=== PATIENT | male | born 1955 | race Caucasian/White ===

== ENCOUNTER 2017-06-02 12:23 | Emergency (ER) | payer OTHER ==
[~2017-06-02] VITALS: Ht 182.9 cm; Wt 66.0 kg
[~2017-06-02 12:23] MED LIST: ASPI-529 PO; ATOR20TA66 PO; BUDE10.22 INH; CHOL100010 PO; CLA10T PO; DIGO125T PO; EFF37.5XRC PO; FLO0.4C PO; FURO80TA87 PO; LISI-600 PO; METH-360 PO; METO100T7 PO; NICO-631 TD; NITR0.4T48 SL; OLAN2.5T3 PO; OXYC-658 PO; OXYC20TA55 PO; OXYC40TA48 PO; PANT40TA39 PO; RIVA10TA PO; ROPI2TAB29 PO; SPIR25TA PO; albuterol INH
[2017-06-02 13:24] VITALS: BP 118/85
[2017-06-02] MEDS ORDERED: ACET-3067 PO (14:21)
[2017-06-02] MEDS ORDERED: CEPH500C5 PO (14:40)
== END 2017-06-02 15:09 | disposition home or self-care (01) ==
LOC: ER 12:24
DX: S92.901A Unspecified fracture of right foot, initial encounter for closed fracture (principal); I25.10 Atherosclerotic heart disease of native coronary artery without angina pectoris; I11.0 Hypertensive heart disease with heart failure; I50.9 Heart failure, unspecified; E78.00 Pure hypercholesterolemia, unspecified; I25.2 Old myocardial infarction; J44.9 Chronic obstructive pulmonary disease, unspecified; K21.9 Gastro-esophageal reflux disease without esophagitis; G89.29 Other chronic pain; Z79.899 Other long term (current) drug therapy; W22.8XXA Striking against or struck by other objects, initial encounter; Y93.89 Activity, other specified; Y92.89 Other specified places as the place of occurrence of the external cause; Y99.8 Other external cause status
CPT/HCPCS: 29515; 73630; 99284; A6449

== ENCOUNTER 2018-02-19 21:51 | Inpatient (IN) | payer OTHER ==
[~2018-02-19] VITALS: Ht 188 cm; Wt 70.4 kg
[~2018-02-19 21:51] MED LIST changes: +CEPH500C5 PO
[2018-02-19] MEDS ORDERED: ipratropium/albuterol 3ml nebule NEB ONE (21:55)
[2018-02-19] MEDS ORDERED: albuterol 2.5 MG/3 ML nebule NEB ONE (21:55)
[2018-02-19] MEDS ORDERED: levoFLOXACIN-Levaquin 750MG/D5 150 ML IV ONE (21:55)
[2018-02-19] MEDS ORDERED: methylPREDNISolone sod succ 125mg/2ml vial IV ONE (21:55)
[2018-02-19] MEDS ORDERED: ipratropium 0.5 MG/2.5ML nebule ONE (21:57)
[2018-02-19] MEDS ORDERED: albuterol 2.5 MG/3 ML nebule ONE (21:57)
[2018-02-19] MEDS ORDERED: CYCL-394 PO (22:16)
[2018-02-19 22:21] LABS: ABG BASE EXCESS 1.2 mmol/L (-2.0-3.0); ABG HCO3 27.2 mmol/L (22.0-26.0); ABG OXYGEN SATURATION 95.6 % (95-98); ABG PCO2 (T) 47.2 mmHg (35.0-48.0); ABG PH (T) 7.375 (7.350-7.450); ABG PO2 (T) 72.3 mmHg (83-108); FCOHb 1.5 % (0.5-1.5); FLOW 15 L/min; FMetHb 0.1 % (0.3-1.12); FO2Hb 94.1 % (94-100); PATIENT TEMPERATURE 36.2; RESPIRATORY RATE (OBSERVED) 20 b/min; TOTAL HEMOGLOBIN 13.1 G/dl (14.0-18.0)
[2018-02-19] MEDS ORDERED: CefTRIAXone/D5W-Rocephin 1gm 50 ML IV ONE (22:25)
[2018-02-19] MEDS ORDERED: normal saline 1000ML IV soln IVB ONE (22:25)
[2018-02-19 22:28] LABS: BASOPHILS # (AUTO) 0.1 X10'3 (0-0.2); BASOPHILS % (AUTO) 0.3 % (0-1); EOSINOPHILS # (AUTO) 0.1 X10'3 (0-0.9); EOSINOPHILS % (AUTO) 0.8 % (0-6); HEMATOCRIT 41.8 % (42.0-52.0); HEMOGLOBIN 13.8 g/dl (14.0-17.9); LYMPHOCYTES # (AUTO) 1.1 X10'3 (1.1-4.8); LYMPHOCYTES % (AUTO) 6.3 % (21-51); MEAN CORPUSCULAR HEMOGLOBIN 31.9 PG (27.0-31.0); MEAN CORPUSCULAR VOLUME 96.9 FL (78-98); MEAN PLATELET VOLUME 8.2 FL (7.4-10.4); MONOCYTES # (AUTO) 1.2 X10'3 (0-0.9); MONOCYTES % (AUTO) 6.9 % (2-12); NEUTROPHILS % (AUTO) 85.7 % (42-75); PLATELET COUNT 275 X10'3 (140-440); RED BLOOD COUNT 4.32 X10'6 (4.70-6.10); RED CELL DISTRIBUTION WIDTH 13.8 % (11.5-14.5); WHITE BLOOD COUNT 17.5 X10'3 (4.5-11.0)
[2018-02-19 22:36] LABS: ALANINE AMINOTRANSFERASE 21 U/L (12-78); ALBUMIN 2.4 G/DL (3.4-5.0); ALBUMIN/GLOBULIN RATIO 0.5 (1.1-1.5); ALKALINE PHOSPHATASE 102 IU/L (46-116); ANION GAP 7 (8-16); ASPARTATE AMINO TRANSFERASE 28 U/L (10-37); BILIRUBIN,TOTAL 0.7 MG/DL (0.1-1.0); BLOOD UREA NITROGEN 17 MG/DL (7-18); CALCIUM 8.6 MG/DL (8.5-10.1); CHLORIDE 98 MMOL/L (99-107); CREATININE 1.31 MG/DL (0.60-1.10); GLUCOSE 96 MG/DL (70-104); POTASSIUM 4.6 MMOL/L (3.5-5.1); SODIUM 134 MMOL/L (135-145); TOTAL CARBON DIOXIDE 28.8 MMOL/L (24-32); TOTAL PROTEIN 7.6 G/DL (6.4-8.2); eGFR 55 ML/MIN
[2018-02-19 22:41] LABS: INR 1.5 INR; PARTIAL THROMBOPLASTIN TIME 61 SECONDS (22-32); PROTHROMBIN TIME 15.3 SECONDS (9.0-12.0)
[2018-02-19 22:43] LABS: ETHANOL < 0.010 GM/DL (0.0-0.010); MAGNESIUM 1.1 MG/DL (1.5-2.4)
[2018-02-19 22:44] LABS: ACETAMINOPHEN < 2.0 UG/ML (10-30)
--- NOTE | 2018-02-19 22:48 | NUR ---
[place] [phone]
[2018-02-19] MEDS ORDERED: normal saline 1000ML IV soln IV ONE (22:50)
[2018-02-19] MEDS: normal saline 1000ml 1,000 ML IV SCH (23:46)
[2018-02-19 23:49] LABS: PLATELET ESTIMATE NORMAL; TOTAL CELLS COUNTED 100
[2018-02-19] MEDS ORDERED: potassium Cl 40MEQ/NS 500ml 500 ML IV PRN ×2 (23:50)
[2018-02-19] MEDS ORDERED: acetaminophen 325mg tablet PO PRN (23:50)
[2018-02-19] MEDS ORDERED: potassium Cl 20 mEq SR tablet PO PRN ×2 (23:50)
[2018-02-19] MEDS ORDERED: acetaminophen 650mg rectal suppository RC PRN (23:50)
[2018-02-19] MEDS ORDERED: ondansetron/PF 4mg/2ml inj IV PRN (23:50)
[2018-02-19 23:58] LABS: URINE AMPHETAMINE SCREEN NEGATIVE (Neg); URINE BARBITUATE SCREEN NEGATIVE (Neg); URINE BENZODIAZEPINES SCREEN NEGATIVE (Neg); URINE CANNABINOID SCREEN POSITIVE (Neg); URINE COCAINE SCREEN NEGATIVE (Neg); URINE METHADONE SCREEN NEGATIVE (Neg); URINE OPIATE SCREEN POSITIVE (Neg); URINE PHENCYCLIDINE SCREEN NEGATIVE (Neg)
--- NOTE | 2018-02-20 00:48 | NUR ---
ASSUMED PATIENT CARE FOR LUNCH BREAK, PT IN FOUR POINT RESTRAINTS, CSM X 4 INTACT, NO ORDERS NOTED FOR RESTRAINTS, [facility] CLINICAL REHABILITATION AIDE NOTIFIED, WILL NOTIFY PRIMARY RN UPON HIS RETURN FROM LUNCH.
--- NOTE | 2018-02-20 00:58 | NUR ---
PT RESTRAINTS REMOVED, PT ALERT, AND AGREES TO NOT POOL AT HIS IV LINES. UPON REMOVING RESTRAINTS PT CALM AND FOLLOWING COMMANDS.
[2018-02-20] MEDS: albuterol 2.5 MG/3 ML nebule NEB SCH ×4 (02:00→20:21)
[2018-02-20] MEDS ORDERED: ipratropium/albuterol 3ml nebule NEB SCH (03:00)
[2018-02-20 05:16] LABS: BASOPHILS % (AUTO) 0.1 % (0-1); EOSINOPHILS % (AUTO) 0.1 % (0-6); HEMATOCRIT 34.6 % (42.0-52.0); HEMOGLOBIN 11.7 g/dl (14.0-17.9); LYMPHOCYTES # (AUTO) 0.2 X10'3 (1.1-4.8); LYMPHOCYTES % (AUTO) 1.3 % (21-51); MEAN CORPUSCULAR HGB CONC 33.9 % (33.0-36.5); MEAN CORPUSCULAR VOLUME 97.2 FL (78-98); MEAN PLATELET VOLUME 8.1 FL (7.4-10.4); MONOCYTES # (AUTO) 0.3 X10'3 (0-0.9); MONOCYTES % (AUTO) 1.7 % (2-12); NEUTROPHILS # (AUTO) 14.7 X10'3 (1.8-7.7); NEUTROPHILS % (AUTO) 96.8 % (42-75); PLATELET COUNT 212 X10'3 (140-440); RED BLOOD COUNT 3.56 X10'6 (4.70-6.10); RED CELL DISTRIBUTION WIDTH 13.9 % (11.5-14.5); WHITE BLOOD COUNT 15.2 X10'3 (4.5-11.0)
[2018-02-20 05:18] LABS: ALANINE AMINOTRANSFERASE 18 U/L (12-78); ALBUMIN 1.9 G/DL (3.4-5.0); ALBUMIN/GLOBULIN RATIO 0.4 (1.1-1.5); ALKALINE PHOSPHATASE 84 IU/L (46-116); ANION GAP 7 (8-16); ASPARTATE AMINO TRANSFERASE 21 U/L (10-37); BILIRUBIN,TOTAL 0.4 MG/DL (0.1-1.0); BLOOD UREA NITROGEN 15 MG/DL (7-18); BUN/CREATININE RATIO 14.2 (5.4-32.0); CALCIUM 7.9 MG/DL (8.5-10.1); CHLORIDE 103 MMOL/L (99-107); CREATININE 1.06 MG/DL (0.60-1.10); GLUCOSE 105 MG/DL (70-104); POTASSIUM 4.8 MMOL/L (3.5-5.1); SODIUM 135 MMOL/L (135-145); TOTAL CARBON DIOXIDE 24.7 MMOL/L (24-32); TOTAL PROTEIN 6.3 G/DL (6.4-8.2); eGFR 70 ML/MIN
[2018-02-20 05:21] LABS: MAGNESIUM 1.1 MG/DL (1.5-2.4); PHOSPHORUS 3.3 MG/DL (2.3-4.5)
[2018-02-20 05:22] LABS: INR 1.7 INR; PARTIAL THROMBOPLASTIN TIME 63 SECONDS (22-32); PROTHROMBIN TIME 16.7 SECONDS (9.0-12.0)
[2018-02-20 05:55] LABS: CLARITY,URINE CLEAR (Clear); COLOR,URINE YELLOW (Yellow); GLUCOSE, URINE NEGATIVE (Neg); KETONES,URINE NEGATIVE (Neg); LEUKOCYTE ESTERASE ,URINE NEGATIVE (Neg); NITRITES, URINE NEGATIVE (Neg); OCCULT BLOOD,URINE MODERATE (Neg); PROTEIN,URINE TRACE mg/dl (Neg)
[2018-02-20 06:00] LABS: UA COLLECTION TYPE FOLEY CATH
[2018-02-20 06:16] LABS: BACTERIA,URINE FEW /HPF (Neg); WBC,URINE 0-4 /HPF (0-4)
[2018-02-20 06:17] LABS: MUCUS STRANDS NONE SEEN /LPF (Neg); SQUAMOUS EPITHELIAL CELL,UR NONE SEEN /LPF (FEW)
[2018-02-20 06:59] LABS: TOTAL CELLS COUNTED 100
[2018-02-20 07:00] LABS: PLATELET ESTIMATE NORMAL; TOXIC VACUOLATION 1+
[2018-02-20] MEDS: aspirin 81mg tab.chew PO SCH (07:42)
[2018-02-20] MEDS: CefTRIAXone 2gm/D5W 50ml 50 ML IV SCH (07:42)
[2018-02-20] MEDS: pantoprazole 40 MG vial IV SCH (07:43)
[2018-02-20] MEDS: atorvastatin 20mg tablet PO SCH (07:43)
[2018-02-20] MEDS: metoprolol succinate 25mg (24-HOUR) SR. Tablet PO SCH (07:43)
[2018-02-20] MEDS: methylPREDNISolone sod succ/PF 40mg inj. IV SCH ×2 (07:43→20:02)
[2018-02-20] MEDS ORDERED: non-formulary drug (Budesonide/Formoterol Fumarate (Symbicort 80-4.5 Mcg Inhaler) 2 PUFFS) INH SCH (08:00)
[2018-02-20] MEDS: K, MAG and/or Phos replacement - Verify level? MC SCH (08:00)
[2018-02-20] MEDS ORDERED: heparin, porcine 5000 units/ml vial SQ SCH (08:00)
[2018-02-20] MEDS: furosemide 40mg/4ml inj IV SCH (08:07)
[2018-02-20] MEDS: docusate sod 100mg capsule PO SCH ×2 (08:07→20:02)
[2018-02-20] MEDS: digoxin 125mcg (0.125mg) tablet PO SCH (08:56)
[2018-02-20] MEDS: budesonide 0.5mg/2ml UD nebule IH SCH ×2 (09:11→20:21)
--- NOTE | 2018-02-20 10:30 | NUR ---
Made Dr. Rodriguez aware of low Mag. 1.1, no new orders. He states he doesn't want it replaced unless patient goes into [facility].
--- NOTE | 2018-02-20 11:12 | NUR ---
RECEIVED REPORT FROM YAMILETH ER NURSE, WAITING FOR PATIENT TO ARRIVE TO ROOM.
--- NOTE | 2018-02-20 11:40 | NUR ---
PATIENT ARRIVED TO TELE ROOM 3017 A.
--- NOTE | 2018-02-20 13:39 | NUR ---
WAS MADE AWARE OF SVT RHYTHM ON TELE. NO NEW ORDERS AT THIS TIME.
[2018-02-20 15:00] VITALS: BP 120/76
[2018-02-20] MEDS ORDERED: iohexol 300mg/ml 100ml inj. ONE (16:58)
--- NOTE | 2018-02-20 17:11 | NUR ---
PATIENT LEFT FOR CT HEAD WITH CONTRAST.
[2018-02-20] MEDS: rivaroxaban 10mg tablet PO SCH (17:57)
[2018-02-20 18:00] VITALS: BP 114/67
--- NOTE | 2018-02-20 19:01 | NUR ---
Patient in room PCU 3017. I have received report from FATOUMATA Pal and had the opportunity to ask questions and assume patient care.
[2018-02-20] MEDS: normal saline 1000ml 1,000 ML IV SCH (19:06)
--- NOTE | 2018-02-20 19:28 | NUR ---
sputum sample sent to lab
--- NOTE | 2018-02-20 21:12 | NUR ---
Patient falls asleep when being spoken to. Unable to dart patient. Will continue to monitor for the ability.
[2018-02-20 22:00] VITALS: BP 114/64
[2018-02-21] MEDS: acetaminophen 325mg tablet PO PRN (01:48)
[2018-02-21 02:00] VITALS: BP 114/52
[2018-02-21] MEDS: oxyCODONE IR 5mg (immed. release) tablet PO PRN ×3 (02:15→20:51)
[2018-02-21] MEDS: normal saline 1000ml 1,000 ML IV SCH ×2 (02:26→08:42)
[2018-02-21] MEDS: albuterol 2.5 MG/3 ML nebule NEB SCH ×4 (03:10→20:20)
[2018-02-21 06:06] LABS: BASOPHILS % (AUTO) 0 % (0-1); EOSINOPHILS % (AUTO) 0 % (0-6); HEMATOCRIT 33.6 % (42.0-52.0); HEMOGLOBIN 11.2 g/dl (14.0-17.9); LYMPHOCYTES # (AUTO) 0.3 X10'3 (1.1-4.8); LYMPHOCYTES % (AUTO) 2.1 % (21-51); MEAN CORPUSCULAR HEMOGLOBIN 32.1 PG (27.0-31.0); MEAN CORPUSCULAR HGB CONC 33.4 % (33.0-36.5); MONOCYTES # (AUTO) 0.4 X10'3 (0-0.9); MONOCYTES % (AUTO) 3.1 % (2-12); NEUTROPHILS # (AUTO) 12.6 X10'3 (1.8-7.7); NEUTROPHILS % (AUTO) 94.8 % (42-75); PLATELET COUNT 283 X10'3 (140-440); WHITE BLOOD COUNT 13.3 X10'3 (4.5-11.0)
[2018-02-21 06:22] LABS: ALANINE AMINOTRANSFERASE 16 U/L (12-78); ALBUMIN 1.7 G/DL (3.4-5.0); ALBUMIN/GLOBULIN RATIO 0.4 (1.1-1.5); ALKALINE PHOSPHATASE 80 IU/L (46-116); ANION GAP 8 (8-16); ASPARTATE AMINO TRANSFERASE 22 U/L (10-37); BILIRUBIN,TOTAL 0.3 MG/DL (0.1-1.0); BLOOD UREA NITROGEN 25 MG/DL (7-18); BUN/CREATININE RATIO 22.7 (5.4-32.0); CALCIUM 8.4 MG/DL (8.5-10.1); CHLORIDE 106 MMOL/L (99-107); GLUCOSE 123 MG/DL (70-104); MAGNESIUM 1.3 MG/DL (1.5-2.4); PHOSPHORUS 3.1 MG/DL (2.3-4.5); SODIUM 141 MMOL/L (135-145); TOTAL CARBON DIOXIDE 26.7 MMOL/L (24-32); TOTAL PROTEIN 6.2 G/DL (6.4-8.2); eGFR 67 ML/MIN
--- NOTE | 2018-02-21 06:36 | NUR ---
Problems reprioritized. Patient report given, questions answered & plan of care reviewed with FATOUMATA Montanez.
--- NOTE | 2018-02-21 06:40 | NUR ---
Patient in room PCU 3017. I have received report from Verena HAM and had the opportunity to ask questions and assume patient care.
[2018-02-21 06:44] LABS: INR 1.7 INR; PARTIAL THROMBOPLASTIN TIME 61 SECONDS (22-32); PROTHROMBIN TIME 16.4 SECONDS (9.0-12.0)
[2018-02-21 07:11] VITALS: BP 126/74
[2018-02-21] MEDS: atorvastatin 20mg tablet PO SCH (07:23)
[2018-02-21] MEDS: aspirin 81mg tab.chew PO SCH (07:23)
[2018-02-21] MEDS: methylPREDNISolone sod succ/PF 40mg inj. IV SCH ×2 (07:24→19:48)
[2018-02-21] MEDS: metoprolol succinate 25mg (24-HOUR) SR. Tablet PO SCH (07:24)
[2018-02-21] MEDS: digoxin 125mcg (0.125mg) tablet PO SCH (07:24)
[2018-02-21] MEDS: K, MAG and/or Phos replacement - Verify level? MC SCH (07:24)
[2018-02-21] MEDS: docusate sod 100mg capsule PO SCH ×2 (07:24→19:47)
[2018-02-21] MEDS: furosemide 40mg/4ml inj IV SCH (07:24)
[2018-02-21] MEDS: pantoprazole 40 MG vial IV SCH (07:24)
[2018-02-21] MEDS: CefTRIAXone 2gm/D5W 50ml 50 ML IV SCH (07:24)
[2018-02-21] MEDS: budesonide 0.5mg/2ml UD nebule IH SCH ×2 (07:42→20:20)
[2018-02-21] MEDS: azithromycin/NS 500mg/250ml 250 ML IV SCH (08:42)
--- NOTE | 2018-02-21 12:31 | NUR ---
Nutrition consult: Pt with hx DM. Last A1c was 6.2 taken 08/23/14. New A1c pending. Will continue to follow and monitor need for DM ed. Addendum: 02/21/18 at [address] Amended: Links added.
[2018-02-21 12:33] VITALS: BP 115/60
[2018-02-21 12:53] LABS: HEMOGLOBIN A1C 5.7 % (4.5-6.2)
--- NOTE | 2018-02-21 14:45 | NUR ---
Dr. Rodriguez informed of positive MRSA nasal swab. Also informed MD of Mg 1.3, MD ordered slow mag BID, one dose now. Informed MD that pt had 5 and 7beat run of VTach this AM. aware. also aware of A1C of 5.7, D/C'd accuchecks.
[2018-02-21] MEDS ORDERED: magnesium Cl slow-release 64mg tablet PO ONE (14:50)
[2018-02-21] MEDS: vancomycin/NS 1 GM ADD-VANTAGE 250 ML IV SCH ×2 (15:11→19:48)
[2018-02-21 16:04] VITALS: BP 128/60
--- NOTE | 2018-02-21 16:05 | NUR ---
F/u: Patient's A1c is 5.7. DM education not warranted at this time. Will continue to follow. Nutrition consult: Pt with hx DM. Last A1c was 6.2 taken 08/23/14. New A1c pending. Will continue to follow and monitor need for DM ed. Addendum: 02/21/18 at [address] Amended: Links added.
[2018-02-21] MEDS: rivaroxaban 10mg tablet PO SCH (16:38)
[2018-02-21 18:00] VITALS: BP 130/82
--- NOTE | 2018-02-21 18:38 | NUR ---
Patient in room PCU 3017. I have received report from FATOUMATA Montanez and had the opportunity to ask questions and assume patient care.
--- NOTE | 2018-02-21 18:43 | NUR ---
Problems reprioritized. Patient report given, questions answered & plan of care reviewed with Melony HAM.
[2018-02-21] MEDS: lactobacillus rhamnosus 10,000 MMU CELLS/CAPSULE PO SCH (19:47)
[2018-02-21] MEDS: magnesium Cl slow-release 64mg tablet PO SCH (19:48)
[2018-02-21 22:00] VITALS: BP 124/65
[2018-02-21] MEDS ORDERED: lactulose 20gm/30ml cup PO PRN (23:50)
[2018-02-22] MEDS: normal saline 1000ml 1,000 ML IV SCH ×2 (01:47→17:25)
[2018-02-22 02:00] VITALS: BP 125/70
[2018-02-22] MEDS ORDERED: ipratropium/albuterol 3ml nebule ONE (02:02)
[2018-02-22] MEDS: albuterol 2.5 MG/3 ML nebule NEB SCH ×4 (02:11→20:17)
[2018-02-22] MEDS: oxyCODONE IR 5mg (immed. release) tablet PO PRN ×4 (03:50→22:42)
[2018-02-22] MEDS: acetaminophen 325mg tablet PO PRN (04:01)
--- NOTE | 2018-02-22 04:30 | NUR ---
Patient was very upset and got out of bed, raising his voice saying he wanted to leave the hospital because he is only getting half of his oxycodone IR dose. Patient was spoken to and calmed down and states he will wait to speak with MD in the morning to discuss.
--- NOTE | 2018-02-22 06:27 | NUR ---
Problems reprioritized. Patient report given, questions answered & plan of care reviewed with FATOUMATA Vale.
[2018-02-22 06:30] VITALS: BP 143/80
--- NOTE | 2018-02-22 06:35 | NUR ---
Problems reprioritized. Patient report given, questions answered & plan of care reviewed with Melony HAM. Addendum: 02/22/18 at 0637 by Kavin Pedraza RN Patient in room [place] [address]. I have received report from Melony HAM and had the opportunity to ask questions and assume patient care.
[2018-02-22] MEDS: lactobacillus rhamnosus 10,000 MMU CELLS/CAPSULE PO SCH ×2 (07:26→20:39)
[2018-02-22] MEDS: methylPREDNISolone sod succ/PF 40mg inj. IV SCH ×2 (07:26→20:38)
[2018-02-22] MEDS: atorvastatin 20mg tablet PO SCH (07:27)
[2018-02-22] MEDS: aspirin 81mg tab.chew PO SCH (07:27)
[2018-02-22] MEDS: magnesium Cl slow-release 64mg tablet PO SCH ×2 (07:27→20:40)
[2018-02-22] MEDS: CefTRIAXone 2gm/D5W 50ml 50 ML IV SCH (07:27)
[2018-02-22] MEDS: pantoprazole 40mg Tablet.DR PO SCH (07:27)
[2018-02-22] MEDS: docusate sod 100mg capsule PO SCH ×2 (07:40→20:39)
[2018-02-22] MEDS: furosemide 40mg/4ml inj IV SCH (07:44)
[2018-02-22] MEDS: metoprolol succinate 25mg (24-HOUR) SR. Tablet PO SCH (07:44)
[2018-02-22] MEDS: digoxin 125mcg (0.125mg) tablet PO SCH (07:44)
[2018-02-22 07:46] LABS: BASOPHILS % (AUTO) 0 % (0-1); EOSINOPHILS % (AUTO) 0 % (0-6); HEMATOCRIT 34.5 % (42.0-52.0); HEMOGLOBIN 11.3 g/dl (14.0-17.9); LYMPHOCYTES # (AUTO) 0.4 X10'3 (1.1-4.8); LYMPHOCYTES % (AUTO) 4.1 % (21-51); MEAN CORPUSCULAR HEMOGLOBIN 31.1 PG (27.0-31.0); MEAN CORPUSCULAR HGB CONC 32.8 % (33.0-36.5); MEAN PLATELET VOLUME 7.8 FL (7.4-10.4); MONOCYTES # (AUTO) 0.4 X10'3 (0-0.9); MONOCYTES % (AUTO) 3.9 % (2-12); NEUTROPHILS # (AUTO) 9.5 X10'3 (1.8-7.7); PLATELET COUNT 336 X10'3 (140-440); RED BLOOD COUNT 3.63 X10'6 (4.70-6.10); RED CELL DISTRIBUTION WIDTH 14.7 % (11.5-14.5); WHITE BLOOD COUNT 10.3 X10'3 (4.5-11.0)
[2018-02-22 07:47] LABS: INR 1.3 INR; PARTIAL THROMBOPLASTIN TIME 44 SECONDS (22-32); PROTHROMBIN TIME 12.6 SECONDS (9.0-12.0)
[2018-02-22 07:51] LABS: ALANINE AMINOTRANSFERASE 20 U/L (12-78); ALBUMIN 1.9 G/DL (3.4-5.0); ALBUMIN/GLOBULIN RATIO 0.4 (1.1-1.5); ALKALINE PHOSPHATASE 78 IU/L (46-116); ANION GAP 8 (8-16); ASPARTATE AMINO TRANSFERASE 25 U/L (10-37); BILIRUBIN,TOTAL 0.3 MG/DL (0.1-1.0); BLOOD UREA NITROGEN 26 MG/DL (7-18); CALCIUM 8.5 MG/DL (8.5-10.1); CHLORIDE 106 MMOL/L (99-107); GLUCOSE 106 MG/DL (70-104); MAGNESIUM 1.6 MG/DL (1.5-2.4); PHOSPHORUS 2.6 MG/DL (2.3-4.5); POTASSIUM 3.8 MMOL/L (3.5-5.1); SODIUM 142 MMOL/L (135-145); TOTAL PROTEIN 6.3 G/DL (6.4-8.2); eGFR 75 ML/MIN
[2018-02-22] MEDS: K, MAG and/or Phos replacement - Verify level? MC SCH (08:00)
[2018-02-22] MEDS: azithromycin/NS 500mg/250ml 250 ML IV SCH (08:34)
[2018-02-22] MEDS: budesonide 0.5mg/2ml UD nebule IH SCH ×2 (08:49→20:17)
--- NOTE | 2018-02-22 08:50 | NUR ---
LIZZETH Luna reported that patient was short of breath. Patient's O2 sat was 75% at 2 lpm/nc. Patient's oximeter probe was on a gloved finger. Patient's O2 sat rechecked on the finger without glove on, O2 sat went up to 95%. Patient stated that he went to the bathroom by himself. Patient was advised to use call light system. Bed alarm turned on for safety. Instructed LIZZETH Luna to place a bedside commode at bedside and encouraged patient to call for assistance - patient verbalized understanding of safety instructions made
[2018-02-22] MEDS: vancomycin/NS 1 GM ADD-VANTAGE 250 ML IV SCH ×2 (09:41→20:39)
--- NOTE | 2018-02-22 10:37 | NUR ---
Patient had 13 runs of Vtach as reported by Kopjra. Printed strip showed to CLAYTON Ladd covering for Dr. Rodriguez. She gave me an order to interrogate pacemaker. Addendum: 02/22/18 at 1053 by Kavin Pedraza RN Called patient's to ask about pacemaker information -she said it is Code71. [employer] notified
[2018-02-22] MEDS ORDERED: potassium Cl 20 mEq SR tablet PO STA (10:49)
--- NOTE | 2018-02-22 10:53 | NUR ---
Dr. Rodriguez came by at the nurses station - showed to him the recorded strip of runs of Vtach. He ordered to replace K and to keep K level at least 4.5. CLAYTON Liang gave me the specific order for K replacement
[2018-02-22 11:00] VITALS: BP 143/81
--- NOTE | 2018-02-22 11:43 | NUR ---
Spoke to Cal tinsley from [employer]. He acknowledged request for pacemaker interrogation for this patient. Cal said to me that he is currently in the [place] [facility] and won't be able to see the patient until tomorrow around 10 am
--- NOTE | 2018-02-22 14:49 | NUR ---
CLAYTON Ladd spoke to the patient, she said that patient denies suicidal thoughts and that he is only frustrated
[2018-02-22 15:00] VITALS: BP 144/93
[2018-02-22] MEDS ORDERED: potassium chloride 10mEq CAPSULE.SA PO SCH (15:00)
[2018-02-22] MEDS ORDERED: potassium Cl 20 mEq SR tablet PO ONE (15:00)
[2018-02-22] MEDS: oxyCODONE SR 10mg (sust. release) tab PO SCH ×2 (17:21→20:40)
[2018-02-22] MEDS: rivaroxaban 10mg tablet PO SCH (17:22)
[2018-02-22 18:00] VITALS: BP 135/81
--- NOTE | 2018-02-22 18:05 | NUR ---
Patient in room PCU 3017. I have received report from Kavin HAM and had the opportunity to ask questions and assume patient care.
--- NOTE | 2018-02-22 18:39 | NUR ---
Problems reprioritized. Patient report given, questions answered & plan of care reviewed with Martha HAM.
[2018-02-22] MEDS ORDERED: potassium chloride 10mEq ER tablet PO ONE (18:40)
[2018-02-22] MEDS: OLANZapine 2.5MG tablet PO SCH (20:40)
[2018-02-22 22:00] VITALS: BP 139/87
[2018-02-23 02:00] VITALS: BP 144/75
[2018-02-23] MEDS: albuterol 2.5 MG/3 ML nebule NEB SCH ×4 (02:07→20:11)
[2018-02-23] MEDS ORDERED: oxyCODONE SR 10mg (sust. release) tab PO SCH (02:55)
[2018-02-23] MEDS: oxyCODONE SR 10mg (sust. release) tab PO SCH ×4 (03:15→19:36)
--- NOTE | 2018-02-23 06:50 | NUR ---
Problems reprioritized. Patient report given, questions answered & plan of care reviewed with Rea HAM.
[2018-02-23 07:00] VITALS: BP 133/86
[2018-02-23] MEDS ORDERED: VANCOMYCIN LEVEL IV ONE (07:30)
[2018-02-23 07:47] LABS: BASOPHILS % (AUTO) 0.5 % (0-1); EOSINOPHILS % (AUTO) 0.1 % (0-6); HEMATOCRIT 37.2 % (42.0-52.0); HEMOGLOBIN 12.1 g/dl (14.0-17.9); LYMPHOCYTES # (AUTO) 0.7 X10'3 (1.1-4.8); LYMPHOCYTES % (AUTO) 6.4 % (21-51); MEAN CORPUSCULAR HGB CONC 32.5 % (33.0-36.5); MEAN CORPUSCULAR VOLUME 95.4 FL (78-98); MEAN PLATELET VOLUME 7.4 FL (7.4-10.4); MONOCYTES # (AUTO) 0.5 X10'3 (0-0.9); MONOCYTES % (AUTO) 4.8 % (2-12); NEUTROPHILS % (AUTO) 88.2 % (42-75); PLATELET COUNT 376 X10'3 (140-440); RED CELL DISTRIBUTION WIDTH 15.3 % (11.5-14.5); WHITE BLOOD COUNT 10.3 X10'3 (4.5-11.0)
[2018-02-23] MEDS: budesonide 0.5mg/2ml UD nebule IH SCH ×2 (07:48→20:11)
[2018-02-23] MEDS: K, MAG and/or Phos replacement - Verify level? MC SCH (08:00)
[2018-02-23 08:04] LABS: INR 1.2 INR; PARTIAL THROMBOPLASTIN TIME 35 SECONDS (22-32)
[2018-02-23 08:08] LABS: ALANINE AMINOTRANSFERASE 22 U/L (12-78); ALBUMIN 2.1 G/DL (3.4-5.0); ALBUMIN/GLOBULIN RATIO 0.5 (1.1-1.5); ALKALINE PHOSPHATASE 74 IU/L (46-116); ANION GAP 7 (8-16); ASPARTATE AMINO TRANSFERASE 23 U/L (10-37); BILIRUBIN,TOTAL 0.3 MG/DL (0.1-1.0); BLOOD UREA NITROGEN 25 MG/DL (7-18); BUN/CREATININE RATIO 25.8 (5.4-32.0); CALCIUM 8.9 MG/DL (8.5-10.1); CHLORIDE 104 MMOL/L (99-107); CREATININE 0.97 MG/DL (0.60-1.10); GLUCOSE 98 MG/DL (70-104); MAGNESIUM 1.6 MG/DL (1.5-2.4); PHOSPHORUS 2.8 MG/DL (2.3-4.5); POTASSIUM 4.6 MMOL/L (3.5-5.1); SODIUM 140 MMOL/L (135-145); TOTAL CARBON DIOXIDE 29.4 MMOL/L (24-32); TOTAL PROTEIN 6.5 G/DL (6.4-8.2); VANCOMYCIN,TROUGH 19.9 UG/ML (6.0-14.0); eGFR 78 ML/MIN
[2018-02-23] MEDS: CefTRIAXone 2gm/D5W 50ml 50 ML IV SCH (08:24)
[2018-02-23] MEDS: furosemide 40mg/4ml inj IV SCH (08:24)
[2018-02-23] MEDS: methylPREDNISolone sod succ/PF 40mg inj. IV SCH ×2 (08:25→19:36)
[2018-02-23] MEDS: lactobacillus rhamnosus 10,000 MMU CELLS/CAPSULE PO SCH ×2 (08:29→19:36)
[2018-02-23] MEDS: docusate sod 100mg capsule PO SCH ×2 (08:29→19:41)
[2018-02-23] MEDS: azithromycin 250mg tablet PO SCH (08:29)
[2018-02-23] MEDS: magnesium Cl slow-release 64mg tablet PO SCH ×2 (08:29→19:36)
[2018-02-23] MEDS: pantoprazole 40mg Tablet.DR PO SCH (08:30)
[2018-02-23] MEDS: metoprolol succinate 25mg (24-HOUR) SR. Tablet PO SCH (08:30)
[2018-02-23] MEDS: atorvastatin 20mg tablet PO SCH (08:30)
[2018-02-23] MEDS: potassium Cl 20 mEq SR tablet PO SCH (08:30)
[2018-02-23] MEDS: vancomycin/NS 1 GM ADD-VANTAGE 250 ML IV SCH ×2 (08:31→19:37)
[2018-02-23] MEDS: normal saline 1000ml 1,000 ML IV SCH ×2 (08:31→21:06)
[2018-02-23] MEDS: digoxin 125mcg (0.125mg) tablet PO SCH (08:31)
[2018-02-23] MEDS: aspirin 81mg tab.chew PO SCH (08:31)
[2018-02-23] MEDS: oxyCODONE IR 5mg (immed. release) tablet PO PRN ×3 (09:59→22:01)
[2018-02-23 12:00] VITALS: BP 140/78
--- NOTE | 2018-02-23 15:08 | NUR ---
Initial: Pt admit w/ bacterial PNA, hx smoker and emphysema. PO 50% avg carb controlled meals increased to 75% latest meal. LBM 02/22. Will monitor for additional protein needs. Rec: 1. continue carb controlled diet 2. monitor for ONS needs 3. wt per rx Addendum: 02/23/18 at [address] Amended: Links added.
[2018-02-23] MEDS: rivaroxaban 10mg tablet PO SCH (17:39)
--- NOTE | 2018-02-23 18:20 | NUR ---
Patient in room PCU 3017. I have received report from Rea HAM and had the opportunity to ask questions and assume patient care. at bedside, pt resting comfortably, in no distress at this time. will continue to monitor.
[2018-02-23 19:00] VITALS: BP 128/82
[2018-02-23] MEDS: OLANZapine 2.5MG tablet PO SCH (20:56)
[2018-02-23 23:00] VITALS: BP 137/81
[2018-02-24] MEDS: albuterol 2.5 MG/3 ML nebule NEB SCH ×3 (02:04→14:20)
[2018-02-24] MEDS: oxyCODONE SR 10mg (sust. release) tab PO SCH ×3 (02:10→14:07)
[2018-02-24 03:06] VITALS: BP 129/70
[2018-02-24] MEDS: oxyCODONE IR 5mg (immed. release) tablet PO PRN ×3 (05:35→16:04)
[2018-02-24 06:00] VITALS: BP 123/74
[2018-02-24 06:22] LABS: BASOPHILS # (AUTO) 0.1 X10'3 (0-0.2); BASOPHILS % (AUTO) 0.8 % (0-1); EOSINOPHILS # (AUTO) 0.1 X10'3 (0-0.9); EOSINOPHILS % (AUTO) 1.3 % (0-6); HEMATOCRIT 40.5 % (42.0-52.0); HEMOGLOBIN 13.1 g/dl (14.0-17.9); LYMPHOCYTES # (AUTO) 0.6 X10'3 (1.1-4.8); LYMPHOCYTES % (AUTO) 5.8 % (21-51); MEAN CORPUSCULAR HGB CONC 32.4 % (33.0-36.5); MEAN CORPUSCULAR VOLUME 95.8 FL (78-98); MEAN PLATELET VOLUME 7.3 FL (7.4-10.4); MONOCYTES # (AUTO) 0.5 X10'3 (0-0.9); MONOCYTES % (AUTO) 4.7 % (2-12); NEUTROPHILS # (AUTO) 9.1 X10'3 (1.8-7.7); NEUTROPHILS % (AUTO) 87.4 % (42-75); PLATELET COUNT 459 X10'3 (140-440); RED BLOOD COUNT 4.23 X10'6 (4.70-6.10); WHITE BLOOD COUNT 10.4 X10'3 (4.5-11.0)
--- NOTE | 2018-02-24 06:30 | NUR ---
Patient in room PCU 3017. I have received report from Pallavi HAM and had the opportunity to ask questions and assume patient care. Patient resting comfortably in bed. In no acute distress. Will continue to monitor.
--- NOTE | 2018-02-24 06:32 | NUR ---
Problems reprioritized. Patient report given, questions answered & plan of care reviewed with Deb HAM.
[2018-02-24 06:34] LABS: ALANINE AMINOTRANSFERASE 25 U/L (12-78); ALBUMIN 2.3 G/DL (3.4-5.0); ALBUMIN/GLOBULIN RATIO 0.5 (1.1-1.5); ALKALINE PHOSPHATASE 81 IU/L (46-116); ANION GAP 4 (8-16); ASPARTATE AMINO TRANSFERASE 22 U/L (10-37); BILIRUBIN,TOTAL 0.4 MG/DL (0.1-1.0); BLOOD UREA NITROGEN 24 MG/DL (7-18); CALCIUM 9.1 MG/DL (8.5-10.1); CHLORIDE 103 MMOL/L (99-107); GLUCOSE 108 MG/DL (70-104); INR 1.2 INR; MAGNESIUM 1.7 MG/DL (1.5-2.4); PARTIAL THROMBOPLASTIN TIME 35 SECONDS (22-32); PHOSPHORUS 3.6 MG/DL (2.3-4.5); POTASSIUM 4.9 MMOL/L (3.5-5.1); PROTHROMBIN TIME 12.1 SECONDS (9.0-12.0); SODIUM 141 MMOL/L (135-145); TOTAL CARBON DIOXIDE 33.6 MMOL/L (24-32); TOTAL PROTEIN 6.9 G/DL (6.4-8.2); eGFR 75 ML/MIN
[2018-02-24] MEDS: K, MAG and/or Phos replacement - Verify level? MC SCH (08:00)
[2018-02-24] MEDS: docusate sod 100mg capsule PO SCH (08:00)
[2018-02-24] MEDS: budesonide 0.5mg/2ml UD nebule IH SCH (08:12)
[2018-02-24] MEDS: atorvastatin 20mg tablet PO SCH (08:37)
[2018-02-24] MEDS: digoxin 125mcg (0.125mg) tablet PO SCH (08:40)
[2018-02-24] MEDS: potassium Cl 20 mEq SR tablet PO SCH (08:40)
[2018-02-24] MEDS: magnesium Cl slow-release 64mg tablet PO SCH (08:55)
[2018-02-24] MEDS: pantoprazole 40mg Tablet.DR PO SCH (08:55)
[2018-02-24] MEDS: azithromycin 250mg tablet PO SCH (08:57)
[2018-02-24] MEDS: CefTRIAXone 2gm/D5W 50ml 50 ML IV SCH (08:57)
[2018-02-24] MEDS: metoprolol succinate 25mg (24-HOUR) SR. Tablet PO SCH (08:57)
[2018-02-24] MEDS: lactobacillus rhamnosus 10,000 MMU CELLS/CAPSULE PO SCH (08:57)
[2018-02-24] MEDS: aspirin 81mg tab.chew PO SCH (08:57)
[2018-02-24] MEDS: furosemide 40mg/4ml inj IV SCH (08:57)
[2018-02-24] MEDS: methylPREDNISolone sod succ/PF 40mg inj. IV SCH (08:57)
[2018-02-24 11:00] VITALS: BP 132/93
[2018-02-24] MEDS: vancomycin/NS 1 GM ADD-VANTAGE 250 ML IV SCH (11:13)
[2018-02-24] MEDS: normal saline 1000ml 1,000 ML IV SCH (14:08)
[2018-02-24 15:00] VITALS: BP 155/76
[2018-02-24] MEDS ORDERED: PRED10TA PO (15:59)
[2018-02-24] MEDS ORDERED: LEVO500T2 PO (15:59)
--- NOTE | 2018-02-24 17:15 | NUR ---
Patient stable to discharge per MD orders. All discharge instructions reviewed with patient and all questions answered. [facility]. Patient provided education on new prescriptions. PIV discontinued - cannula intact. Telemetry monitoring discontinued. Patient transported in wheelchair by PCT to private vehicle, accompanied by family member.
== END 2018-02-24 17:15 | disposition home or self-care (01) | DRG 871 ==
LOC: ER 21:52 → ED HOLD 23:46 → EDBEDREQSVC 02-20 10:50 → EDBEDREQ 02-20 10:50 → EDBEDREQTM 02-20 10:50 → PCU 3S 02-20 12:04
PROVIDERS: ADMIT Internal Medicine Critical Care Medicine; ATTEND Internal Medicine Critical Care Medicine
DX: A41.9 Sepsis, unspecified organism (principal); J96.01 Acute respiratory failure with hypoxia; J85.1 Abscess of lung with pneumonia; J44.0 Chronic obstructive pulmonary disease with (acute) lower respiratory infection; I42.9 Cardiomyopathy, unspecified; I50.22 Chronic systolic (congestive) heart failure; I47.2 Ventricular tachycardia; E78.00 Pure hypercholesterolemia, unspecified; F15.90 Other stimulant use, unspecified, uncomplicated; F32.9 Major depressive disorder, single episode, unspecified; F41.9 Anxiety disorder, unspecified; B19.20 Unspecified viral hepatitis C without hepatic coma; M54.9 Dorsalgia, unspecified; G89.4 Chronic pain syndrome; I11.0 Hypertensive heart disease with heart failure; I25.10 Atherosclerotic heart disease of native coronary artery without angina pectoris; B95.62 Methicillin resistant Staphylococcus aureus infection as the cause of diseases classified elsewhere; K21.9 Gastro-esophageal reflux disease without esophagitis; Z78.1 Physical restraint status; I25.2 Old myocardial infarction; Z91.010 Allergy to peanuts; Z98.61 Coronary angioplasty status; Z79.899 Other long term (current) drug therapy; Z79.01 Long term (current) use of anticoagulants; Z79.51 Long term (current) use of inhaled steroids; Z87.440 Personal history of urinary (tract) infections; Z82.49 Family history of ischemic heart disease and other diseases of the circulatory system; Z83.3 Family history of diabetes mellitus
CPT/HCPCS: 36415; 36600; 70450; 71045; 71260; 80053; 80162; 80202; 80305; 80320; 80329; 81001; 82140; 82803; 82948; 83036; 83605; 83735; 83880; 84100; 84132; 84145; 84484; 85018; 85025; 85610; 85730; 87040; 87070; 87502; 87503; 93005; 93306; 94640; 94760; 96365; 96367; 96375; 97116; 97161; 97530; 99291; C9113; G0378; J0456; J0696; J1940; J1956; J2920; J2930; J3370; J7030; J7626; Q9967

== ENCOUNTER 2018-11-13 12:12 | Day surgery (SDC) | payer OTHER ==
[2018-11-12 14:52] LABS: BASOPHILS % (AUTO) 0.7 % (0-1); EOSINOPHILS # (AUTO) 0.1 X10'3 (0-0.9); EOSINOPHILS % (AUTO) 2.5 % (0-6); LYMPHOCYTES # (AUTO) 0.6 X10'3 (1.1-4.8); MEAN CORPUSCULAR HEMOGLOBIN 31.5 PG (27.0-31.0); MEAN CORPUSCULAR VOLUME 95.2 FL (78-98); MEAN PLATELET VOLUME 8.3 FL (7.4-10.4); MONOCYTES # (AUTO) 0.7 X10'3 (0-0.9); NEUTROPHILS # (AUTO) 4.1 X10'3 (1.8-7.7); NEUTROPHILS % (AUTO) 73.8 % (42-75); PRE OP HEMATOCRIT 42.3 % (42.0-52.0); PRE OP PLATELET COUNT 150 X10'3 (140-440); RED BLOOD COUNT 4.45 X10'6 (4.70-6.10); RED CELL DISTRIBUTION WIDTH 14.8 % (11.5-14.5)
[2018-11-12 15:04] LABS: PRE OP INR 0.9 INR
[2018-11-12 15:08] LABS: ALBUMIN 2.9 G/DL (3.4-5.0); ALBUMIN/GLOBULIN RATIO 0.7 (1.1-1.5); ALKALINE PHOSPHATASE 139 IU/L (46-116); BLOOD UREA NITROGEN 19 MG/DL (7-18); BUN/CREATININE RATIO 15.7 (5.4-32.0); CALCIUM 8.8 MG/DL (8.5-10.1); CHLORIDE 104 MMOL/L (99-107); CREATININE 1.21 MG/DL (0.60-1.10); PRE OP ALT 17 U/L (30-65); PRE OP ANION GAP 5 (8-16); PRE OP AST 25 U/L (10-37); PRE OP BILIRUB, TOTAL 0.2 MG/DL (0.0-1.0); PRE OP GLUCOSE 110 MG/DL (70-104); PRE OP POTASSIUM 4.1 MMOL/L (3.4-5.1); PRE OP SODIUM 142 MMOL/L (135-145); TOTAL CARBON DIOXIDE 33.1 MMOL/L (24-32); TOTAL PROTEIN 7.3 G/DL (6.4-8.2); eGFR 60 ML/MIN
[~2018-11-13] VITALS: Ht 182.9 cm; Wt 65.3 kg
[~2018-11-13 12:12] MED LIST changes: -CEPH500C5 PO; -CHOL100010 PO; +CYCL-394 PO; -METH-360 PO; -NICO-631 TD; -NITR0.4T48 SL; -OXYC40TA48 PO; -PANT40TA39 PO; -ROPI2TAB29 PO; -albuterol INH
[2018-11-13] MEDS ORDERED: DOCUMENT DATE & TIME OF BETA-BLOCKER PO ONE (12:15)
[2018-11-13] MEDS ORDERED: albuterol 2.5 MG/3 ML nebule NEB ONE (12:15)
[2018-11-13] MEDS ORDERED: ringers solution, lacted 1,000 ML IV SCH ×2 (12:15→15:40)
[2018-11-13] MEDS ORDERED: famotidine 20mg tablet PO ONE (12:15)
[2018-11-13] MEDS ORDERED: cefazolin/dext.iso 2gm/50ml 50 ML IV ONE (12:15)
[2018-11-13] MEDS ORDERED: VANCOMYCIN INJ 1000 MG in NORMAL SALINE 250ml IV.SOLN IV ONE (12:15)
[2018-11-13 12:25] VITALS: BP 118/77
[2018-11-13] MEDS ORDERED: CHOL10002 PO (12:32)
[2018-11-13] MEDS ORDERED: CYAN250014 PO (12:32)
[2018-11-13] MEDS ORDERED: PANT20TA3 PO (12:32)
[2018-11-13] MEDS ORDERED: ondansetron/PF 4mg/2ml inj IV PRN (15:40)
[2018-11-13] MEDS ORDERED: morphine 4 MG/ML inj SYRINge IV PRN ×2 (15:40)
[2018-11-13] MEDS ORDERED: proCHLORperazine 10 MG/2 ml inj IV PRN (15:40)
[2018-11-13] MEDS ORDERED: meperidine/PF 25mg/ml syringe IV PRN ×3 (15:40)
[2018-11-13] MEDS ORDERED: MIDAZolam 5mg/5ml vial ONE (15:48)
[2018-11-13] MEDS ORDERED: fentaNYL/PF 50MCG/1 ML 2ML syringe ONE (15:48)
[2018-11-13] MEDS ORDERED: ROPIVAcaine 0.5% (5mg/ml) 30ml vial ONE (16:11)
[2018-11-13] MEDS ORDERED: BUPIVAcaine/PF 2.5 mg/ml (0.25%) 30ml vial ONE (16:19)
[2018-11-13 18:11] VITALS: BP 128/82
--- NOTE | 2018-11-13 18:11 | NUR ---
Received from OR via LISA , accompanied by Anesthesiologist ROX and report given by Anesthesiolgist. PATIENT WITH 20G PIV IN LEFT UE RUNNING LR AT 100. RIGHT UE IN UNIVALVED SPLINT. NO SENSATION PRESENT, NOHEMI ZAMARRIPA. VSS. Addendum: 11/13/18 at 1844 by Raymon Castillo RN, RN Amended: Links added.
[2018-11-13 18:21] VITALS: BP 121/85
[2018-11-13 18:31] VITALS: BP 118/82
--- NOTE | 2018-11-13 18:41 | NUR ---
ALL CRITERIA FOR TRANSFER TO THE FLOOR HAS BEEN ACHIEVED. VSS. BED LOW, CALL LIGHT AND VS. SET IN PLACE. RN PRESENT TO ACCEPT CARE. PATIENT RESTING COMFORTABLY IN BED. BELONGINGS SENT WITH PATIENT. DRESSINGS CDI. PRESENT AND HEARD ALL DC INSTRUCTIONS. IV TAKEN OUT WITHOUT COMPLICATIONS, DISCUSSED THE NERVE BLOCK, DONNED SLING . INSTRUCTED ON PROPER DIET AND LIMITING SMOKING FOR PROPER HEALING. OUT VIA WHEELCHAIR TO PERSONAL VEHICLE WHERE DROVE PATIENT HOME. Addendum: 11/13/18 at 1848 by Raymon Castillo RN, RN Amended: Links added.
== END 2018-11-13 18:41 | disposition home or self-care (01) ==
LOC: PAS 12:12
PROVIDERS: ATTEND Orthopaedic Surgery
DX: S62.511A Displaced fracture of proximal phalanx of right thumb, initial encounter for closed fracture (principal); S66.021A Laceration of long flexor muscle, fascia and tendon of right thumb at wrist and hand level, initial encounter; J44.9 Chronic obstructive pulmonary disease, unspecified; G89.18 Other acute postprocedural pain; I25.10 Atherosclerotic heart disease of native coronary artery without angina pectoris; I10 Essential (primary) hypertension; I25.2 Old myocardial infarction; Z95.5 Presence of coronary angioplasty implant and graft; Z95.0 Presence of cardiac pacemaker; F41.9 Anxiety disorder, unspecified; F32.9 Major depressive disorder, single episode, unspecified; E11.9 Type 2 diabetes mellitus without complications; E78.5 Hyperlipidemia, unspecified; G89.4 Chronic pain syndrome; K21.9 Gastro-esophageal reflux disease without esophagitis; M19.011 Primary osteoarthritis, right shoulder; M19.012 Primary osteoarthritis, left shoulder; B18.2 Chronic viral hepatitis C; M17.11 Unilateral primary osteoarthritis, right knee; F32.89 Other specified depressive episodes; Z96.652 Presence of left artificial knee joint; Z91.010 Allergy to peanuts; Z98.890 Other specified postprocedural states; F17.210 Nicotine dependence, cigarettes, uncomplicated; Z86.14 Personal history of Methicillin resistant Staphylococcus aureus infection; Z86.718 Personal history of other venous thrombosis and embolism; Z79.899 Other long term (current) drug therapy; Z79.82 Long term (current) use of aspirin; X58.XXXA Exposure to other specified factors, initial encounter; Y93.89 Activity, other specified; Y92.89 Other specified places as the place of occurrence of the external cause; Y99.8 Other external cause status
CPT/HCPCS: 26356; 26735; 36415; 64417; 71046; 80053; 82948; 85025; 85610; 85730; 93005; A6222; C1713; J2250; J3010; J3370; J3490; A4215; A4618; A6250; A6449; A7000; J2795; J7120

== ENCOUNTER 2018-11-30 10:17 | Inpatient (IN) | payer OTHER ==
[~2018-11-30] VITALS: Ht 185.4 cm; Wt 80.0 kg
[~2018-11-30 10:17] MED LIST changes: +CHOL10002 PO; +CYAN250014 PO; +PANT20TA3 PO
[2018-11-30] MEDS ORDERED: vancomycin/NS 1 GM ADD-VANTAGE 250 ML IV ONE (11:45)
[2018-11-30 12:02] LABS: BASOPHILS % (AUTO) 0.3 % (0-1); EOSINOPHILS % (AUTO) 0.3 % (0-6); HEMATOCRIT 40.9 % (42.0-52.0); HEMOGLOBIN 13.6 g/dl (14.0-17.9); LYMPHOCYTES # (AUTO) 0.6 X10'3 (1.1-4.8); LYMPHOCYTES % (AUTO) 4.6 % (21-51); MEAN CORPUSCULAR HEMOGLOBIN 31.5 PG (27.0-31.0); MEAN CORPUSCULAR HGB CONC 33.2 g/dL (33.0-36.5); MEAN CORPUSCULAR VOLUME 95.1 FL (78-98); MEAN PLATELET VOLUME 7.5 FL (7.4-10.4); MONOCYTES # (AUTO) 1.7 X10'3 (0-0.9); MONOCYTES % (AUTO) 11.9 % (2-12); NEUTROPHILS # (AUTO) 11.8 X10'3 (1.8-7.7); NEUTROPHILS % (AUTO) 82.9 % (42-75); PLATELET COUNT 283 X10'3 (140-440); RED CELL DISTRIBUTION WIDTH 14.3 % (11.5-14.5); WHITE BLOOD COUNT 14.2 X10'3 (4.5-11.0)
[2018-11-30 12:12] LABS: ALANINE AMINOTRANSFERASE 15 U/L (12-78); ALBUMIN/GLOBULIN RATIO 0.5 (1.1-1.5); ALKALINE PHOSPHATASE 94 IU/L (46-116); ANION GAP 4 (8-16); ASPARTATE AMINO TRANSFERASE 18 U/L (10-37); BILIRUBIN,TOTAL 0.5 MG/DL (0.1-1.0); BLOOD UREA NITROGEN 34 MG/DL (7-18); BUN/CREATININE RATIO 27.2 (5.4-32.0); C-REACTIVE PROTEIN 15.68 MG/DL (0.0-0.5); CALCIUM 9.7 MG/DL (8.5-10.1); CHLORIDE 97 MMOL/L (99-107); CREATININE 1.25 MG/DL (0.60-1.10); GLUCOSE 94 MG/DL (70-104); SODIUM 134 MMOL/L (135-145); TOTAL CARBON DIOXIDE 33.3 MMOL/L (24-32); TOTAL PROTEIN 8.6 G/DL (6.4-8.2); eGFR 58 ML/MIN
[2018-11-30 12:52] LABS: URINE AMPHETAMINE SCREEN POSITIVE (Neg); URINE BARBITUATE SCREEN NEGATIVE (Neg); URINE BENZODIAZEPINES SCREEN NEGATIVE (Neg); URINE CANNABINOID SCREEN POSITIVE (Neg); URINE COCAINE SCREEN NEGATIVE (Neg); URINE METHADONE SCREEN NEGATIVE (Neg); URINE OPIATE SCREEN POSITIVE (Neg); URINE PHENCYCLIDINE SCREEN NEGATIVE (Neg)
[2018-11-30] MEDS ORDERED: HYDROcodone/acetaminophen 10/325mg tab PO PRN (13:00)
[2018-11-30] MEDS ORDERED: mag hydrox/Alum hydrox/simeth 30ml oral suspension PO PRN (13:00)
[2018-11-30] MEDS ORDERED: bisacodyl 10mg suppository rectal RC PRN (13:00)
[2018-11-30] MEDS ORDERED: potassium Cl 20 mEq SR tablet PO PRN ×2 (13:00)
[2018-11-30] MEDS ORDERED: magnesium hydroxide 30ml (MOM) UD suspension PO PRN (13:00)
[2018-11-30] MEDS ORDERED: HYDROcodone/acetaminophen 5mg/325mg tablet PO PRN (13:00)
[2018-11-30] MEDS ORDERED: ondansetron/PF 4mg/2ml inj IV PRN (13:00)
[2018-11-30] MEDS ORDERED: LORazepam 1 MG tablet PO PRN (13:00)
[2018-11-30] MEDS ORDERED: magnesium Cl slow-release 64mg tablet PO PRN (13:00)
[2018-11-30] MEDS ORDERED: metoclopramide 5 mg/ml inj IV PRN (13:00)
[2018-11-30] MEDS ORDERED: magnesium 4gm in 100ml NS 100 ML IV PRN (13:00)
[2018-11-30] MEDS ORDERED: potassium CL 10mEq/100ml bag 100 ML IV PRN ×2 (13:00)
[2018-11-30] MEDS ORDERED: diphenhydrAMINE 25mg capsule PO PRN (13:00)
[2018-11-30] MEDS ORDERED: acetaminophen 325mg tablet PO PRN ×2 (13:00)
[2018-11-30] MEDS ORDERED: diphenhydrAMINE 50 mg/ml inj IV PRN (13:00)
[2018-11-30] MEDS ORDERED: magnesium 2GM in 50ml NS 50 ML IV PRN (13:00)
[2018-11-30] MEDS: HYDROmorphone 1 mg/ml syringe IV PRN ×2 (14:21→18:47)
[2018-11-30] MEDS: venlafaxine XR 75mg capsule (Q24H) PO SCH (14:28)
[2018-11-30] MEDS: furosemide 20MG tablet PO SCH (14:29)
[2018-11-30] MEDS: metoprolol succinate 25mg (24-HOUR) SR. Tablet PO SCH (14:30)
[2018-11-30] MEDS: normal saline 1000ml 1,000 ML IV SCH (14:44)
[2018-11-30] MEDS: LORazepam 2 mg/ml vial IV PRN (14:45)
[2018-11-30 14:54] VITALS: BP 110/68
[2018-11-30] MEDS ORDERED: iohexol 300mg/ml 100ml inj. ONE (15:07)
[2018-11-30 15:11] LABS: CREATINE KINASE 40 U/L (39-308)
--- NOTE | 2018-11-30 15:28 | NUR ---
PAGER ID: [phone] MESSAGE: PT IN 4012B [place]- UNABLE TO GET CT PT WILL NOT HOLD STILL OR COOPERATE. THANK YOU. JOSE L HAM [phone]
[2018-11-30] MEDS ORDERED: piperacillin/tazo 3.375gm/50ml 50 ML IV ONE (16:00)
[2018-11-30] MEDS: albuterol 2.5 MG/3 ML nebule NEB SCH ×2 (16:59→20:03)
[2018-11-30] MEDS: oxyCODONE SR 10mg (sust. release) tab PO SCH ×2 (17:29→21:00)
[2018-11-30 18:00] VITALS: BP 131/78
[2018-11-30] MEDS ORDERED: diphenhydrAMINE 50 mg/ml inj IM ONE (18:15)
[2018-11-30] MEDS ORDERED: haloperidol lactate 5mg/ml inj IM ONE (18:15)
[2018-11-30] MEDS ORDERED: LORazepam 2 mg/ml vial IM ONE (18:15)
[2018-11-30] MEDS ORDERED: non-formulary drug (Budesonide/Formoterol Fumarate (Symbicort 80-4.5 Mcg Inhaler) 2 PUFFS) INH SCH (20:00)
[2018-11-30] MEDS: budesonide 0.5mg/2ml UD nebule IH SCH (20:03)
[2018-11-30] MEDS: olanzapine 10mg tablet PO SCH (20:49)
[2018-11-30] MEDS: lactobacillus rhamnosus 10,000 MMU CELLS/CAPSULE PO SCH (20:50)
[2018-11-30] MEDS ORDERED: temazepam 15mg capsule PO PRN (21:00)
[2018-11-30 22:00] VITALS: BP 131/74
--- NOTE | 2018-11-30 22:09 | NUR ---
Responded to bed alarm. Pt asking why he was here. Pt re-oriented to being in the hospital. Pt stated that he needed to use the restroom. Aide in the room to assist patient with using the urinal. Call light within reach.
[2018-12-01] MEDS: vancomycin/NS 1 GM ADD-VANTAGE 250 ML IV SCH ×3 (00:03→23:51)
[2018-12-01] MEDS: oxyCODONE SR 10mg (sust. release) tab PO SCH ×5 (00:12→21:00)
[2018-12-01] MEDS: HYDROmorphone 1 mg/ml syringe IV PRN (01:46)
[2018-12-01] MEDS: LORazepam 2 mg/ml vial IV PRN (02:04)
[2018-12-01] MEDS: albuterol 2.5 MG/3 ML nebule NEB SCH ×4 (03:00→20:37)
[2018-12-01] MEDS: normal saline 1000ml 1,000 ML IV SCH ×3 (05:25→17:46)
[2018-12-01 06:00] VITALS: BP 145/81
[2018-12-01 06:04] LABS: BASOPHILS # (AUTO) 0.1 X10'3 (0-0.2); BASOPHILS % (AUTO) 0.5 % (0-1); EOSINOPHILS # (AUTO) 0.1 X10'3 (0-0.9); EOSINOPHILS % (AUTO) 0.8 % (0-6); HEMATOCRIT 41.2 % (42.0-52.0); HEMOGLOBIN 13.8 g/dl (14.0-17.9); LYMPHOCYTES # (AUTO) 0.6 X10'3 (1.1-4.8); MEAN CORPUSCULAR HEMOGLOBIN 31.4 PG (27.0-31.0); MEAN CORPUSCULAR HGB CONC 33.5 g/dL (33.0-36.5); MEAN CORPUSCULAR VOLUME 93.9 FL (78-98); MONOCYTES # (AUTO) 1.1 X10'3 (0-0.9); MONOCYTES % (AUTO) 8.3 % (2-12); NEUTROPHILS % (AUTO) 85.4 % (42-75); PLATELET COUNT 252 X10'3 (140-440); RED BLOOD COUNT 4.39 X10'6 (4.70-6.10); WHITE BLOOD COUNT 12.9 X10'3 (4.5-11.0)
[2018-12-01 06:24] LABS: ALANINE AMINOTRANSFERASE 14 U/L (12-78); ALBUMIN 2.6 G/DL (3.4-5.0); ALBUMIN/GLOBULIN RATIO 0.5 (1.1-1.5); ALKALINE PHOSPHATASE 87 IU/L (46-116); ANION GAP 5 (8-16); ASPARTATE AMINO TRANSFERASE 18 U/L (10-37); BILIRUBIN,TOTAL 0.6 MG/DL (0.1-1.0); BLOOD UREA NITROGEN 24 MG/DL (7-18); BUN/CREATININE RATIO 26.4 (5.4-32.0); CALCIUM 9.5 MG/DL (8.5-10.1); CHLORIDE 101 MMOL/L (99-107); CREATININE 0.91 MG/DL (0.60-1.10); GLUCOSE 80 MG/DL (70-104); MAGNESIUM 1.6 MG/DL (1.5-2.4); POTASSIUM 4.6 MMOL/L (3.5-5.1); SODIUM 136 MMOL/L (135-145); TOTAL CARBON DIOXIDE 29.9 MMOL/L (24-32); TOTAL PROTEIN 7.8 G/DL (6.4-8.2); eGFR 84 ML/MIN
[2018-12-01] MEDS: tamsulosin 0.4mg capsule PO SCH (07:52)
[2018-12-01] MEDS: aspirin 81mg tab.chew PO SCH (07:53)
[2018-12-01] MEDS: venlafaxine XR 75mg capsule (Q24H) PO SCH (07:53)
[2018-12-01] MEDS: metoprolol succinate 25mg (24-HOUR) SR. Tablet PO SCH (07:53)
[2018-12-01] MEDS: lisinopril 5mg tablet PO SCH (07:53)
[2018-12-01] MEDS: atorvastatin 20mg tablet PO SCH (07:54)
[2018-12-01] MEDS: furosemide 20MG tablet PO SCH (07:54)
[2018-12-01] MEDS: pantoprazole 40mg Tablet.DR PO SCH (07:54)
[2018-12-01] MEDS: lactobacillus rhamnosus 10,000 MMU CELLS/CAPSULE PO SCH ×2 (07:54→19:04)
[2018-12-01] MEDS: spironolactone 25 MG tablet PO SCH (07:54)
[2018-12-01] MEDS: digoxin 125mcg (0.125mg) tablet PO SCH (07:57)
[2018-12-01] MEDS: K and/or MAG REPLACEMENT MC SCH (08:00)
[2018-12-01] MEDS: budesonide 0.5mg/2ml UD nebule IH SCH ×2 (08:27→20:37)
[2018-12-01] MEDS ORDERED: iohexol 300mg/ml 100ml inj. ONE (09:25)
[2018-12-01 10:00] VITALS: BP 154/91
--- NOTE | 2018-12-01 10:00 | NUR ---
Call out to Dr Scarlett sanches:his post op patient here with infection.
--- NOTE | 2018-12-01 12:45 | NUR ---
Call from Dr Pantoja, out of town until SatDecember 03. New order for Clindamycin po.
--- NOTE | 2018-12-01 13:37 | NUR ---
Continue to repostion & elevate affected hand up on pillows.
[2018-12-01] MEDS: clindamycin 150mg capsule PO SCH ×2 (14:19→19:04)
[2018-12-01 18:00] VITALS: BP 112/66
--- NOTE | 2018-12-01 18:19 | NUR ---
Report to Etta HAM
--- NOTE | 2018-12-01 18:20 | NUR ---
Patient in room ORTHO 4012. I have received report from Neda HAM and had the opportunity to ask questions and assume patient care.
[2018-12-01 22:00] VITALS: BP 112/44
[2018-12-01] MEDS: olanzapine 10mg tablet PO SCH (22:02)
[2018-12-01] MEDS ORDERED: VANCOMYCIN LEVEL IV ONE (23:30)
[2018-12-02] MEDS: clindamycin 150mg capsule PO SCH ×2 (01:01→08:40)
[2018-12-02] MEDS: albuterol 2.5 MG/3 ML nebule NEB SCH ×4 (02:59→19:59)
[2018-12-02] MEDS: normal saline 1000ml 1,000 ML IV SCH ×2 (04:23→17:23)
[2018-12-02 05:52] LABS: BASOPHILS % (AUTO) 0.5 % (0-1); EOSINOPHILS # (AUTO) 0.2 X10'3 (0-0.9); EOSINOPHILS % (AUTO) 1.8 % (0-6); HEMATOCRIT 37.2 % (42.0-52.0); HEMOGLOBIN 12.6 g/dl (14.0-17.9); LYMPHOCYTES # (AUTO) 0.6 X10'3 (1.1-4.8); LYMPHOCYTES % (AUTO) 6.5 % (21-51); MEAN CORPUSCULAR HGB CONC 33.8 g/dL (33.0-36.5); MEAN CORPUSCULAR VOLUME 94.6 FL (78-98); MEAN PLATELET VOLUME 7.5 FL (7.4-10.4); MONOCYTES # (AUTO) 0.9 X10'3 (0-0.9); MONOCYTES % (AUTO) 10.1 % (2-12); NEUTROPHILS # (AUTO) 7.1 X10'3 (1.8-7.7); NEUTROPHILS % (AUTO) 81.1 % (42-75); PLATELET COUNT 255 X10'3 (140-440); RED BLOOD COUNT 3.94 X10'6 (4.70-6.10); RED CELL DISTRIBUTION WIDTH 14.2 % (11.5-14.5); WHITE BLOOD COUNT 8.7 X10'3 (4.5-11.0)
[2018-12-02 06:00] VITALS: BP 146/78
[2018-12-02 06:03] LABS: ALANINE AMINOTRANSFERASE 14 U/L (12-78); ALBUMIN 2.3 G/DL (3.4-5.0); ALBUMIN/GLOBULIN RATIO 0.5 (1.1-1.5); ALKALINE PHOSPHATASE 77 IU/L (46-116); ANION GAP 4 (8-16); ASPARTATE AMINO TRANSFERASE 20 U/L (10-37); BILIRUBIN,TOTAL 0.4 MG/DL (0.1-1.0); BLOOD UREA NITROGEN 17 MG/DL (7-18); BUN/CREATININE RATIO 18.7 (5.4-32.0); CALCIUM 9.4 MG/DL (8.5-10.1); CHLORIDE 101 MMOL/L (99-107); CREATININE 0.91 MG/DL (0.60-1.10); GLUCOSE 94 MG/DL (70-104); MAGNESIUM 1.6 MG/DL (1.5-2.4); SODIUM 136 MMOL/L (135-145); TOTAL PROTEIN 7.2 G/DL (6.4-8.2); eGFR 84 ML/MIN
--- NOTE | 2018-12-02 06:22 | NUR ---
Problems reprioritized. Patient report given, questions answered & plan of care reviewed with Neda HAM.
[2018-12-02] MEDS: K and/or MAG REPLACEMENT MC SCH (08:00)
[2018-12-02] MEDS: budesonide 0.5mg/2ml UD nebule IH SCH ×2 (08:37→19:59)
[2018-12-02] MEDS: spironolactone 25 MG tablet PO SCH (08:38)
[2018-12-02] MEDS: lactobacillus rhamnosus 10,000 MMU CELLS/CAPSULE PO SCH ×2 (08:39→20:11)
[2018-12-02] MEDS: venlafaxine XR 75mg capsule (Q24H) PO SCH (08:39)
[2018-12-02] MEDS: oxyCODONE SR 10mg (sust. release) tab PO SCH ×4 (08:39→20:11)
[2018-12-02] MEDS: aspirin 81mg tab.chew PO SCH (08:39)
[2018-12-02] MEDS: tamsulosin 0.4mg capsule PO SCH (08:40)
[2018-12-02] MEDS: atorvastatin 20mg tablet PO SCH (08:40)
[2018-12-02] MEDS: pantoprazole 40mg Tablet.DR PO SCH (08:40)
[2018-12-02] MEDS: furosemide 20MG tablet PO SCH (08:40)
[2018-12-02] MEDS: digoxin 125mcg (0.125mg) tablet PO SCH (08:45)
[2018-12-02] MEDS: metoprolol succinate 25mg (24-HOUR) SR. Tablet PO SCH (08:49)
[2018-12-02] MEDS: lisinopril 5mg tablet PO SCH (08:49)
[2018-12-02 10:00] VITALS: BP 102/63
[2018-12-02] MEDS ORDERED: magnesium hydroxide 30ml (MOM) UD suspension PO PRN (12:15)
[2018-12-02 14:00] VITALS: BP 134/79
--- NOTE | 2018-12-02 14:00 | NUR ---
Dr Tali mark, advised patient has not complained of any pain and has been sleeping. Oxy not given. Dr is stated that was ok.
[2018-12-02] MEDS: cefepime 1GM/NS ADD-VANTAGE 100 ML IV SCH (17:00)
[2018-12-02 18:00] VITALS: BP 113/78
[2018-12-02] MEDS: docusate sod 100mg capsule PO SCH (20:11)
[2018-12-02] MEDS: olanzapine 10mg tablet PO SCH (20:11)
[2018-12-03] VITALS (19 sets, daily range): BP systolic 102–153; BP diastolic 57–106
[2018-12-03] MEDS: cefepime 1GM/NS ADD-VANTAGE 100 ML IV SCH ×4 (00:54→23:24)
[2018-12-03] MEDS: normal saline 1000ml 1,000 ML IV SCH ×3 (00:56→20:56)
[2018-12-03] MEDS: albuterol 2.5 MG/3 ML nebule NEB SCH ×4 (01:56→20:28)
[2018-12-03 05:57] LABS: BASOPHILS # (AUTO) 0.1 X10'3 (0-0.2); BASOPHILS % (AUTO) 0.9 % (0-1); EOSINOPHILS # (AUTO) 0.2 X10'3 (0-0.9); EOSINOPHILS % (AUTO) 2.3 % (0-6); HEMATOCRIT 40.3 % (42.0-52.0); HEMOGLOBIN 13.6 g/dl (14.0-17.9); LYMPHOCYTES # (AUTO) 0.5 X10'3 (1.1-4.8); LYMPHOCYTES % (AUTO) 6.4 % (21-51); MEAN CORPUSCULAR HEMOGLOBIN 31.6 PG (27.0-31.0); MEAN CORPUSCULAR HGB CONC 33.8 g/dL (33.0-36.5); MEAN CORPUSCULAR VOLUME 93.4 FL (78-98); MEAN PLATELET VOLUME 7.4 FL (7.4-10.4); MONOCYTES # (AUTO) 0.8 X10'3 (0-0.9); MONOCYTES % (AUTO) 10.7 % (2-12); NEUTROPHILS # (AUTO) 6.3 X10'3 (1.8-7.7); NEUTROPHILS % (AUTO) 79.7 % (42-75); PLATELET COUNT 273 X10'3 (140-440); RED BLOOD COUNT 4.32 X10'6 (4.70-6.10); RED CELL DISTRIBUTION WIDTH 14.1 % (11.5-14.5)
[2018-12-03 06:17] LABS: ALANINE AMINOTRANSFERASE 14 U/L (12-78); ALBUMIN 2.2 G/DL (3.4-5.0); ALBUMIN/GLOBULIN RATIO 0.4 (1.1-1.5); ALKALINE PHOSPHATASE 77 IU/L (46-116); ANION GAP 5 (8-16); ASPARTATE AMINO TRANSFERASE 20 U/L (10-37); BILIRUBIN,TOTAL 0.3 MG/DL (0.1-1.0); BLOOD UREA NITROGEN 16 MG/DL (7-18); BUN/CREATININE RATIO 19.8 (5.4-32.0); CALCIUM 9.3 MG/DL (8.5-10.1); CHLORIDE 102 MMOL/L (99-107); CREATININE 0.81 MG/DL (0.60-1.10); GLUCOSE 95 MG/DL (70-104); MAGNESIUM 1.5 MG/DL (1.5-2.4); SODIUM 137 MMOL/L (135-145); TOTAL CARBON DIOXIDE 29.8 MMOL/L (24-32); TOTAL PROTEIN 7.3 G/DL (6.4-8.2); eGFR > 90 ML/MIN
--- NOTE | 2018-12-03 06:17 | NUR ---
REPORT GIVEN TO FATOUMATA CHADWICK.
[2018-12-03] MEDS: K and/or MAG REPLACEMENT MC SCH (08:00)
[2018-12-03] MEDS: aspirin 81mg tab.chew PO SCH (08:00)
[2018-12-03] MEDS: spironolactone 25 MG tablet PO SCH (08:08)
[2018-12-03] MEDS: pantoprazole 40mg Tablet.DR PO SCH (08:08)
[2018-12-03] MEDS: lactobacillus rhamnosus 10,000 MMU CELLS/CAPSULE PO SCH ×2 (08:09→20:34)
[2018-12-03] MEDS: atorvastatin 20mg tablet PO SCH (08:09)
[2018-12-03] MEDS: docusate sod 100mg capsule PO SCH ×2 (08:09→20:34)
[2018-12-03] MEDS: tamsulosin 0.4mg capsule PO SCH (08:09)
[2018-12-03] MEDS: lisinopril 5mg tablet PO SCH (08:09)
[2018-12-03] MEDS: furosemide 20MG tablet PO SCH (08:09)
[2018-12-03] MEDS: venlafaxine XR 75mg capsule (Q24H) PO SCH (08:10)
[2018-12-03] MEDS: metoprolol succinate 25mg (24-HOUR) SR. Tablet PO SCH (08:10)
[2018-12-03] MEDS: oxyCODONE SR 10mg (sust. release) tab PO SCH ×3 (08:10→20:35)
[2018-12-03] MEDS: digoxin 125mcg (0.125mg) tablet PO SCH (08:15)
[2018-12-03] MEDS: budesonide 0.5mg/2ml UD nebule IH SCH ×2 (08:26→20:28)
--- NOTE | 2018-12-03 08:57 | NUR ---
Student Medication Administration: For this medication-pass time frame, all medication were reviewed, dispensed, administered and documented per hospital policy by Akilah Dyson [facility].
--- NOTE | 2018-12-03 14:30 | NUR ---
1300 oxy not given, patient sleeping, resp even & unlabored. 1400 VS pt states 3/[address] Cesar aware oxy not given.
[2018-12-03] MEDS ORDERED: BUPIVAcaine/PF 2.5 mg/ml (0.25%) 30ml vial ONE (15:33)
[2018-12-03] MEDS ORDERED: desflurane 240ml liquid inh. IH ONE (15:55)
[2018-12-03] MEDS ORDERED: fentaNYL/PF 50MCG/1 ML 2ML syringe ONE ×2 (15:56→16:21)
[2018-12-03] MEDS ORDERED: midazolam 2 mg/2 ml injection ONE (15:56)
[2018-12-03] MEDS ORDERED: LIDOcaine 1%/PF 5ML 10 MG/ML VIAL ONE (16:47)
[2018-12-03] MEDS ORDERED: propofol inj 20 ML IV ONE (16:47)
[2018-12-03] MEDS ORDERED: magnesium hydroxide 30ml (MOM) UD suspension PO PRN (16:50)
[2018-12-03] MEDS ORDERED: acetaminophen 325mg tablet PO PRN (16:50)
[2018-12-03] MEDS ORDERED: ondansetron/PF 4mg/2ml inj IV PRN (16:50)
[2018-12-03] MEDS ORDERED: diphenhydrAMINE 25mg capsule PO PRN ×2 (16:50)
[2018-12-03] MEDS ORDERED: HYDROcodone/acetaminophen 10/325mg tab PO PRN (16:50)
[2018-12-03] MEDS ORDERED: bisacodyl 10mg suppository rectal RC PRN (16:50)
--- NOTE | 2018-12-03 16:56 | NUR ---
Received from OR via BED, accompanied by Anesthesiologist DR GRAMAJO and report given by Anesthesiologist. PT AWAKE C/O PAIN TO RIGHT HAND, RIGHT HAND W/HELEN WRAP COVERING INCISION CDI, FINGERS PWD, SIGNAL INTEGRITY ENGINEER 1-2 SECONDS. PT ABLE TO WIGGLE FINGERS. Addendum: 12/03/18 at 1811 by Jackie Hummel RN Amended: Links added.
[2018-12-03] MEDS ORDERED: meperidine/PF 25mg/ml syringe ONE ×2 (17:09→17:30)
[2018-12-03] MEDS ORDERED: morphine 4 MG/ML inj SYRINge ONE (17:16)
--- NOTE | 2018-12-03 17:56 | NUR ---
Report called to receiving nurse. Transferred via BED, NO Maksims, RN AT BEDSIDE TO RECEIVE PT, BLL, CALL LIGHT GIVEN, SIDE RAILS UP X 2. Special Issues communicated to receiving nurse. YES. Addendum: 12/03/18 at 1813 by Jackie Hummel RN Amended: Links added.
[2018-12-03] MEDS: oxyCODONE IR 5mg (immed. release) tablet PO PRN (18:10)
[2018-12-03] MEDS: ascorbic acid 500mg tablet PO SCH (20:34)
[2018-12-03] MEDS: olanzapine 10mg tablet PO SCH (20:34)
[2018-12-03] MEDS: gabapentin 300mg capsule PO SCH (20:34)
[2018-12-03] MEDS: sennosides 8.6mg tablet PO SCH (20:34)
[2018-12-04] MEDS: potassium cl 20mEq in 1/2 NS 1,000 ML IV SCH ×3 (00:36→08:49)
[2018-12-04] MEDS: albuterol 2.5 MG/3 ML nebule NEB SCH ×4 (01:59→21:24)
[2018-12-04 06:00] VITALS: BP 163/67
[2018-12-04 06:20] LABS: BASOPHILS % (AUTO) 0.5 % (0-1); EOSINOPHILS # (AUTO) 0.2 X10'3 (0-0.9); EOSINOPHILS % (AUTO) 2.5 % (0-6); HEMATOCRIT 41.9 % (42.0-52.0); LYMPHOCYTES # (AUTO) 0.6 X10'3 (1.1-4.8); LYMPHOCYTES % (AUTO) 7.1 % (21-51); MEAN CORPUSCULAR HEMOGLOBIN 31.6 PG (27.0-31.0); MEAN CORPUSCULAR HGB CONC 33.5 g/dL (33.0-36.5); MEAN CORPUSCULAR VOLUME 94.3 FL (78-98); MEAN PLATELET VOLUME 7.4 FL (7.4-10.4); MONOCYTES % (AUTO) 11.9 % (2-12); NEUTROPHILS # (AUTO) 6.3 X10'3 (1.8-7.7); PLATELET COUNT 259 X10'3 (140-440); RED BLOOD COUNT 4.44 X10'6 (4.70-6.10)
[2018-12-04 06:39] LABS: ALANINE AMINOTRANSFERASE 15 U/L (12-78); ALBUMIN 2.2 G/DL (3.4-5.0); ALBUMIN/GLOBULIN RATIO 0.4 (1.1-1.5); ALKALINE PHOSPHATASE 81 IU/L (46-116); ANION GAP 6 (8-16); ASPARTATE AMINO TRANSFERASE 18 U/L (10-37); BILIRUBIN,TOTAL 0.4 MG/DL (0.1-1.0); BLOOD UREA NITROGEN 14 MG/DL (7-18); BUN/CREATININE RATIO 17.1 (5.4-32.0); CALCIUM 9.1 MG/DL (8.5-10.1); CHLORIDE 103 MMOL/L (99-107); CREATININE 0.82 MG/DL (0.60-1.10); GLUCOSE 89 MG/DL (70-104); MAGNESIUM 1.6 MG/DL (1.5-2.4); POTASSIUM 4.3 MMOL/L (3.5-5.1); SODIUM 138 MMOL/L (135-145); TOTAL CARBON DIOXIDE 29.1 MMOL/L (24-32); TOTAL PROTEIN 7.5 G/DL (6.4-8.2); eGFR > 90 ML/MIN
[2018-12-04] MEDS: normal saline 1000ml 1,000 ML IV SCH ×2 (06:56→10:54)
--- NOTE | 2018-12-04 07:02 | NUR ---
Patient in room ORTHO 4012. I have received report from Lavonne HAM and had the opportunity to ask questions and assume patient care.
--- NOTE | 2018-12-04 07:03 | NUR ---
REPORT GIVEN TO FATOUMATA BARAJAS.
[2018-12-04] MEDS: atorvastatin 20mg tablet PO SCH (07:56)
[2018-12-04] MEDS: ascorbic acid 500mg tablet PO SCH ×2 (07:56→19:57)
[2018-12-04] MEDS: lactobacillus rhamnosus 10,000 MMU CELLS/CAPSULE PO SCH ×2 (07:56→19:56)
[2018-12-04] MEDS: pantoprazole 40mg Tablet.DR PO SCH (07:57)
[2018-12-04] MEDS: metoprolol succinate 25mg (24-HOUR) SR. Tablet PO SCH (07:57)
[2018-12-04] MEDS: lisinopril 5mg tablet PO SCH (07:58)
[2018-12-04] MEDS: multivitamins, therapeutics tablet PO SCH (07:58)
[2018-12-04] MEDS: spironolactone 25 MG tablet PO SCH (08:01)
[2018-12-04] MEDS: tamsulosin 0.4mg capsule PO SCH (08:02)
[2018-12-04] MEDS: gabapentin 300mg capsule PO SCH ×3 (08:02→19:57)
[2018-12-04] MEDS: docusate sod 100mg capsule PO SCH ×2 (08:02→19:56)
[2018-12-04] MEDS: digoxin 125mcg (0.125mg) tablet PO SCH (08:02)
[2018-12-04] MEDS: venlafaxine XR 75mg capsule (Q24H) PO SCH (08:02)
[2018-12-04] MEDS: oxyCODONE SR 10mg (sust. release) tab PO SCH ×4 (08:03→22:06)
[2018-12-04] MEDS: aspirin 81mg tab.chew PO SCH (08:03)
[2018-12-04] MEDS: furosemide 20MG tablet PO SCH (08:03)
[2018-12-04] MEDS: cefepime 1GM/NS ADD-VANTAGE 100 ML IV SCH (08:05)
[2018-12-04] MEDS: enoxaparin 40mg/0.4ml syringe SQ SCH (08:05)
[2018-12-04] MEDS: K and/or MAG REPLACEMENT MC SCH (08:06)
[2018-12-04] MEDS: budesonide 0.5mg/2ml UD nebule IH SCH ×2 (09:00→21:24)
[2018-12-04 10:00] VITALS: BP 106/64
[2018-12-04 13:56] LABS: HIV ANTIBODY 1&2 RAPID NON-REACTIVE (Neg)
[2018-12-04] MEDS ORDERED: cefepime 1GM in D5W 50mL 50 ML IV SCH (16:00)
--- NOTE | 2018-12-04 17:03 | NUR ---
Initial: Pt admit w/ R finger cellulitis hx meth abuse positive for meth and opiates on admit. PO 75-100% regular diet meeting healing needs s/p I&D of R finger. BM 11/30 receiving senna. Will continue to monitor. Rec: 1. continue regular diet 2. routine bowel care 3. MVI for healing needs 4. wt per rx Addendum: 12/04/18 at [address] Amended: Links added.
--- NOTE | 2018-12-04 18:22 | NUR ---
Problems reprioritized. Patient report given, questions answered & plan of care reviewed with Wayne HAM.
--- NOTE | 2018-12-04 19:00 | NUR ---
Patient in room ORTHO 4012. I have received report from Reece HAM and had the opportunity to ask questions and assume patient care.
[2018-12-04] MEDS: oxyCODONE IR 5mg (immed. release) tablet PO PRN (19:56)
[2018-12-04] MEDS: olanzapine 10mg tablet PO SCH (22:05)
[2018-12-04] MEDS: ciprofloxacin 250mg tablet PO SCH (22:06)
[2018-12-04] MEDS: sennosides 8.6mg tablet PO SCH (22:07)
[2018-12-05] MEDS: albuterol 2.5 MG/3 ML nebule NEB SCH ×4 (02:21→20:20)
[2018-12-05] MEDS: normal saline 1000ml 1,000 ML IV SCH ×3 (03:53→22:56)
[2018-12-05 06:00] VITALS: BP 127/79
[2018-12-05 06:20] LABS: BASOPHILS # (AUTO) 0.1 X10'3 (0-0.2); BASOPHILS % (AUTO) 0.8 % (0-1); EOSINOPHILS # (AUTO) 0.3 X10'3 (0-0.9); HEMATOCRIT 39.1 % (42.0-52.0); LYMPHOCYTES # (AUTO) 0.6 X10'3 (1.1-4.8); LYMPHOCYTES % (AUTO) 9.6 % (21-51); MEAN CORPUSCULAR HEMOGLOBIN 31.4 PG (27.0-31.0); MEAN CORPUSCULAR HGB CONC 33.3 g/dL (33.0-36.5); MEAN CORPUSCULAR VOLUME 94.5 FL (78-98); MEAN PLATELET VOLUME 7.1 FL (7.4-10.4); MONOCYTES % (AUTO) 15.3 % (2-12); NEUTROPHILS # (AUTO) 4.6 X10'3 (1.8-7.7); NEUTROPHILS % (AUTO) 70.3 % (42-75); PLATELET COUNT 254 X10'3 (140-440); RED BLOOD COUNT 4.14 X10'6 (4.70-6.10); RED CELL DISTRIBUTION WIDTH 13.9 % (11.5-14.5); WHITE BLOOD COUNT 6.6 X10'3 (4.5-11.0)
--- NOTE | 2018-12-05 06:28 | NUR ---
Patient in room ORTHO 4012. I have received report from Wayne HAM and had the opportunity to ask questions and assume patient care.
[2018-12-05 06:33] LABS: ALANINE AMINOTRANSFERASE 15 U/L (12-78); ALBUMIN 2.1 G/DL (3.4-5.0); ALBUMIN/GLOBULIN RATIO 0.4 (1.1-1.5); ALKALINE PHOSPHATASE 81 IU/L (46-116); ANION GAP 3 (8-16); ASPARTATE AMINO TRANSFERASE 20 U/L (10-37); BILIRUBIN,TOTAL 0.2 MG/DL (0.1-1.0); BLOOD UREA NITROGEN 19 MG/DL (7-18); BUN/CREATININE RATIO 22.4 (5.4-32.0); CALCIUM 8.8 MG/DL (8.5-10.1); CHLORIDE 104 MMOL/L (99-107); CREATININE 0.85 MG/DL (0.60-1.10); GLUCOSE 97 MG/DL (70-104); MAGNESIUM 1.5 MG/DL (1.5-2.4); POTASSIUM 4.1 MMOL/L (3.5-5.1); SODIUM 138 MMOL/L (135-145); TOTAL CARBON DIOXIDE 30.8 MMOL/L (24-32); eGFR 90 ML/MIN
[2018-12-05] MEDS: K and/or MAG REPLACEMENT MC SCH (07:09)
[2018-12-05] MEDS: lisinopril 5mg tablet PO SCH (07:21)
[2018-12-05] MEDS: lactobacillus rhamnosus 10,000 MMU CELLS/CAPSULE PO SCH ×2 (07:22→21:19)
[2018-12-05] MEDS: furosemide 20MG tablet PO SCH (07:22)
[2018-12-05] MEDS: gabapentin 300mg capsule PO SCH ×3 (07:23→21:19)
[2018-12-05] MEDS: pantoprazole 40mg Tablet.DR PO SCH (07:23)
[2018-12-05] MEDS: atorvastatin 20mg tablet PO SCH (07:23)
[2018-12-05] MEDS: oxyCODONE SR 10mg (sust. release) tab PO SCH ×4 (07:23→21:19)
[2018-12-05] MEDS: metoprolol succinate 25mg (24-HOUR) SR. Tablet PO SCH (07:23)
[2018-12-05] MEDS: ascorbic acid 500mg tablet PO SCH ×2 (07:23→21:19)
[2018-12-05] MEDS: tamsulosin 0.4mg capsule PO SCH (07:23)
[2018-12-05] MEDS: venlafaxine XR 75mg capsule (Q24H) PO SCH (07:24)
[2018-12-05] MEDS: spironolactone 25 MG tablet PO SCH (07:24)
[2018-12-05] MEDS: multivitamins, therapeutics tablet PO SCH (07:25)
[2018-12-05] MEDS: docusate sod 100mg capsule PO SCH ×2 (07:25→20:00)
[2018-12-05] MEDS: aspirin 81mg tab.chew PO SCH (07:25)
[2018-12-05] MEDS: digoxin 125mcg (0.125mg) tablet PO SCH (07:27)
[2018-12-05] MEDS: enoxaparin 40mg/0.4ml syringe SQ SCH (07:28)
[2018-12-05] MEDS: budesonide 0.5mg/2ml UD nebule IH SCH ×2 (10:16→20:20)
[2018-12-05] MEDS: ciprofloxacin 250mg tablet PO SCH ×2 (10:37→21:19)
[2018-12-05] MEDS: HYDROcodone/acetaminophen 10/325mg tab PO PRN ×2 (13:50→17:31)
--- NOTE | 2018-12-05 14:35 | NUR ---
WOUND INFECTION EDUCATION PROVIDED BY WOUND CARE 1. Patient instructed to call their primary doctor, or go the ED immediately if any of the following symptoms occur: * Increased pain in wound * Increase in drainage from the wound * Redness in the skin surrounding the wound * Warmth in the skin surrounding the wound * Bleeding from the wound * Temperature of 101 or greater 2. If any of these occur while in the hospital tell a nurse immediately. Addendum: 12/05/18 at 1435 by Lore Bellamy RN Amended: Links added.
[2018-12-05 18:00] VITALS: BP 121/77
--- NOTE | 2018-12-05 18:22 | NUR ---
Problems reprioritized. Patient report given, questions answered & plan of care reviewed with Charlotte HAM.
[2018-12-05] MEDS: sennosides 8.6mg tablet PO SCH (21:00)
[2018-12-05] MEDS: olanzapine 10mg tablet PO SCH (21:19)
[2018-12-05] MEDS: oxyCODONE IR 5mg (immed. release) tablet PO PRN (21:21)
[2018-12-05 21:45] VITALS: BP 128/76
[2018-12-06] MEDS: albuterol 2.5 MG/3 ML nebule NEB SCH ×4 (03:00→21:00)
[2018-12-06] MEDS: oxyCODONE IR 5mg (immed. release) tablet PO PRN ×3 (05:08→20:18)
[2018-12-06 06:00] VITALS: BP 126/80
--- NOTE | 2018-12-06 06:39 | NUR ---
reported to days. noted pt anticipates discharge tomorrow. requested d/c of tele and ivf.
[2018-12-06] MEDS: aspirin 81mg tab.chew PO SCH (07:36)
[2018-12-06] MEDS: docusate sod 100mg capsule PO SCH ×2 (07:36→20:00)
[2018-12-06] MEDS: tamsulosin 0.4mg capsule PO SCH (07:37)
[2018-12-06] MEDS: atorvastatin 20mg tablet PO SCH (07:37)
[2018-12-06] MEDS: venlafaxine XR 75mg capsule (Q24H) PO SCH (07:37)
[2018-12-06] MEDS: digoxin 125mcg (0.125mg) tablet PO SCH (07:37)
[2018-12-06] MEDS: furosemide 20MG tablet PO SCH (07:37)
[2018-12-06] MEDS: lactobacillus rhamnosus 10,000 MMU CELLS/CAPSULE PO SCH ×2 (07:37→22:28)
[2018-12-06] MEDS: ascorbic acid 500mg tablet PO SCH ×2 (07:38→22:28)
[2018-12-06] MEDS: oxyCODONE SR 10mg (sust. release) tab PO SCH ×4 (07:38→22:28)
[2018-12-06] MEDS: metoprolol succinate 25mg (24-HOUR) SR. Tablet PO SCH (07:38)
[2018-12-06] MEDS: lisinopril 5mg tablet PO SCH (07:38)
[2018-12-06] MEDS: pantoprazole 40mg Tablet.DR PO SCH (07:38)
[2018-12-06] MEDS: multivitamins, therapeutics tablet PO SCH (07:38)
[2018-12-06] MEDS: gabapentin 300mg capsule PO SCH ×3 (07:38→22:29)
[2018-12-06] MEDS: enoxaparin 40mg/0.4ml syringe SQ SCH (07:39)
--- NOTE | 2018-12-06 07:47 | NUR ---
PAGER ID: [phone] MESSAGE: Bettina Thompson9 re Marko Pritchard in 4012b- mag is 1.4, no protocol ordered, may I replace with Slow mag bid and recheck in a.m?
[2018-12-06] MEDS: budesonide 0.5mg/2ml UD nebule IH SCH ×2 (07:51→21:00)
[2018-12-06] MEDS: K and/or MAG REPLACEMENT MC SCH (08:00)
[2018-12-06] MEDS: spironolactone 25 MG tablet PO SCH (08:00)
[2018-12-06] MEDS: normal saline 1000ml 1,000 ML IV SCH ×2 (08:56→18:56)
[2018-12-06] MEDS: HYDROcodone/acetaminophen 10/325mg tab PO PRN ×3 (09:35→22:30)
[2018-12-06 10:00] VITALS: BP 92/73
[2018-12-06] MEDS: ciprofloxacin 250mg tablet PO SCH ×2 (11:48→22:28)
[2018-12-06] MEDS ORDERED: potassium Cl 20 mEq SR tablet PO PRN ×2 (12:45)
[2018-12-06] MEDS: magnesium Cl slow-release 64mg tablet PO PRN ×2 (13:06→22:28)
[2018-12-06 18:00] VITALS: BP 124/67
[2018-12-06] MEDS: sennosides 8.6mg tablet PO SCH (21:00)
[2018-12-06 21:55] VITALS: BP 115/82
[2018-12-06] MEDS: olanzapine 10mg tablet PO SCH (22:28)
[2018-12-07] MEDS: albuterol 2.5 MG/3 ML nebule NEB SCH ×2 (02:36→09:02)
[2018-12-07 06:00] VITALS: BP 133/83
--- NOTE | 2018-12-07 06:28 | NUR ---
reported to days. noted patient resting w/o distress Addendum: 12/07/18 at 0629 by Enriqueta Campo RN noted pt needs rx for cipro at home and may benefit from Home health
[2018-12-07 06:41] LABS: MAGNESIUM 1.7 MG/DL (1.5-2.4)
[2018-12-07] MEDS: K and/or MAG REPLACEMENT MC SCH (08:00)
[2018-12-07] MEDS: lactobacillus rhamnosus 10,000 MMU CELLS/CAPSULE PO SCH (08:01)
[2018-12-07] MEDS: atorvastatin 20mg tablet PO SCH (08:01)
[2018-12-07] MEDS: spironolactone 25 MG tablet PO SCH (08:02)
[2018-12-07] MEDS: aspirin 81mg tab.chew PO SCH (08:02)
[2018-12-07] MEDS: gabapentin 300mg capsule PO SCH (08:02)
[2018-12-07] MEDS: lisinopril 5mg tablet PO SCH (08:02)
[2018-12-07] MEDS: multivitamins, therapeutics tablet PO SCH (08:02)
[2018-12-07] MEDS: metoprolol succinate 25mg (24-HOUR) SR. Tablet PO SCH (08:02)
[2018-12-07] MEDS: ascorbic acid 500mg tablet PO SCH (08:02)
[2018-12-07] MEDS: furosemide 20MG tablet PO SCH (08:02)
[2018-12-07] MEDS: oxyCODONE SR 10mg (sust. release) tab PO SCH (08:02)
[2018-12-07] MEDS: pantoprazole 40mg Tablet.DR PO SCH (08:02)
[2018-12-07] MEDS: tamsulosin 0.4mg capsule PO SCH (08:02)
[2018-12-07] MEDS: venlafaxine XR 75mg capsule (Q24H) PO SCH (08:02)
[2018-12-07] MEDS: docusate sod 100mg capsule PO SCH (08:02)
[2018-12-07] MEDS: enoxaparin 40mg/0.4ml syringe SQ SCH (08:03)
[2018-12-07] MEDS: digoxin 125mcg (0.125mg) tablet PO SCH (08:09)
[2018-12-07] MEDS: budesonide 0.5mg/2ml UD nebule IH SCH (09:02)
[2018-12-07 09:25] LABS: BASOPHILS % (AUTO) 0.5 % (0-1); EOSINOPHILS # (AUTO) 0.3 X10'3 (0-0.9); EOSINOPHILS % (AUTO) 4.9 % (0-6); HEMATOCRIT 39.9 % (42.0-52.0); HEMOGLOBIN 13.2 g/dl (14.0-17.9); LYMPHOCYTES # (AUTO) 0.7 X10'3 (1.1-4.8); LYMPHOCYTES % (AUTO) 12.1 % (21-51); MEAN CORPUSCULAR HEMOGLOBIN 31.3 PG (27.0-31.0); MEAN CORPUSCULAR HGB CONC 33.1 g/dL (33.0-36.5); MEAN CORPUSCULAR VOLUME 94.5 FL (78-98); MEAN PLATELET VOLUME 8.2 FL (7.4-10.4); MONOCYTES # (AUTO) 0.8 X10'3 (0-0.9); MONOCYTES % (AUTO) 13.3 % (2-12); NEUTROPHILS # (AUTO) 4.1 X10'3 (1.8-7.7); NEUTROPHILS % (AUTO) 69.2 % (42-75); PLATELET COUNT 255 X10'3 (140-440); RED BLOOD COUNT 4.23 X10'6 (4.70-6.10); RED CELL DISTRIBUTION WIDTH 14.1 % (11.5-14.5)
[2018-12-07 09:33] LABS: ALBUMIN 2.3 G/DL (3.4-5.0); ANION GAP 4 (8-16); BLOOD UREA NITROGEN 19 MG/DL (7-18); BUN/CREATININE RATIO 19.4 (5.4-32.0); CALCIUM 9.3 MG/DL (8.5-10.1); CHLORIDE 105 MMOL/L (99-107); CREATININE 0.98 MG/DL (0.60-1.10); GLUCOSE 81 MG/DL (70-104); POTASSIUM 4.5 MMOL/L (3.5-5.1); SODIUM 139 MMOL/L (135-145); TOTAL CARBON DIOXIDE 30.4 MMOL/L (24-32); eGFR 77 ML/MIN
[2018-12-07] MEDS ORDERED: FLU VACC QS2019-20 36MOS UP/PF 60 MCG/0.5 ML SYRINGE IMVAC ONE (10:00)
[2018-12-07 10:16] LABS: PLATELET ESTIMATE NORMAL; TOTAL CELLS COUNTED 100
[2018-12-07] MEDS: ciprofloxacin 250mg tablet PO SCH (10:38)
[2018-12-07] MEDS: normal saline 1000ml 1,000 ML IV SCH (11:57)
== END 2018-12-07 12:25 | disposition home or self-care (01) | DRG 559 ==
LOC: ER 10:17 → ED HOLD 13:24 → ORTHO 4S 14:04
PROVIDERS: ADMIT Family Medicine; ATTEND Internal Medicine
PROC: 0H9FXZZ Drainage of Right Hand Skin, External Approach (ICD-10-PCS; principal; 2018-12-03 15:55)
PROC: 3E02340 Introduction of Influenza Vaccine into Muscle, Percutaneous Approach (ICD-10-PCS; 2018-12-07)
DX: T84.69XA Infection and inflammatory reaction due to internal fixation device of other site, initial encounter (principal); A41.9 Sepsis, unspecified organism; N17.0 Acute kidney failure with tubular necrosis; L03.113 Cellulitis of right upper limb; I50.22 Chronic systolic (congestive) heart failure; M86.8X4 Other osteomyelitis, hand; I43 Cardiomyopathy in diseases classified elsewhere; M79.A11 Nontraumatic compartment syndrome of right upper extremity; L03.011 Cellulitis of right finger; B19.20 Unspecified viral hepatitis C without hepatic coma; E11.51 Type 2 diabetes mellitus with diabetic peripheral angiopathy without gangrene; E11.69 Type 2 diabetes mellitus with other specified complication; E78.00 Pure hypercholesterolemia, unspecified; E78.5 Hyperlipidemia, unspecified; F15.90 Other stimulant use, unspecified, uncomplicated; G89.29 Other chronic pain; I11.0 Hypertensive heart disease with heart failure; I25.10 Atherosclerotic heart disease of native coronary artery without angina pectoris; Z96.652 Presence of left artificial knee joint; F32.9 Major depressive disorder, single episode, unspecified; F41.9 Anxiety disorder, unspecified; M19.90 Unspecified osteoarthritis, unspecified site; M54.9 Dorsalgia, unspecified; M65.841 Other synovitis and tenosynovitis, right hand; F17.210 Nicotine dependence, cigarettes, uncomplicated; I48.91 Unspecified atrial fibrillation; B96.5 Pseudomonas (aeruginosa) (mallei) (pseudomallei) as the cause of diseases classified elsewhere; Y83.1 Surgical operation with implant of artificial internal device as the cause of abnormal reaction of the patient, or of later complication, without mention of misadventure at the time of the procedure; J44.9 Chronic obstructive pulmonary disease, unspecified; K21.9 Gastro-esophageal reflux disease without esophagitis; M48.00 Spinal stenosis, site unspecified; Z79.891 Long term (current) use of opiate analgesic; I25.2 Old myocardial infarction; Z23 Encounter for immunization; Z79.82 Long term (current) use of aspirin; Z82.49 Family history of ischemic heart disease and other diseases of the circulatory system; Z83.3 Family history of diabetes mellitus; Z86.718 Personal history of other venous thrombosis and embolism; Z91.19 Patient's noncompliance with other medical treatment and regimen; Z95.810 Presence of automatic (implantable) cardiac defibrillator; Z91.010 Allergy to peanuts; Y92.89 Other specified places as the place of occurrence of the external cause; Z95.5 Presence of coronary angioplasty implant and graft
CPT/HCPCS: 36415; 73130; 73201; 80048; 80053; 80162; 80202; 80305; 82550; 82948; 83036; 83605; 83735; 84145; 85025; 85610; 85651; 86140; 86703; 87070; 87077; 87081; 87186; 93931; 94640; 94760; 96365; 97110; 97116; 97161; 99285; A4215; A4618; A6266; A6449; A7000; G0378; J0692; J1170; J1650; J2060; J2175; J2250; J2270; J2543; J2704; J3010; J3370; J3480; J3490; J7030; J7626; L3650; Q2037; Q9967

== ENCOUNTER 2018-12-11 09:03 | Inpatient (IN) | payer MEDICARE, OTHER ==
[~2018-12-11] VITALS: Ht 185.4 cm; Wt 64.2 kg
--- NOTE | 2018-12-11 09:25 | NUR ---
PER CLAYTON Ko, Trauma Status called off.
[2018-12-11] MEDS ORDERED: LORazepam 2 mg/ml vial IV ONE (09:30)
[2018-12-11] MEDS ORDERED: morphine 4 MG/ML inj SYRINge IV ONE (09:30)
[2018-12-11] MEDS ORDERED: ondansetron/PF 4mg/2ml inj IV ONE (09:30)
[2018-12-11] MEDS ORDERED: normal saline 1000ML IV soln IV ONE (09:30)
[2018-12-11 10:03] LABS: BASOPHILS # (AUTO) 0.1 X10'3 (0-0.2); BASOPHILS % (AUTO) 0.7 % (0-1); EOSINOPHILS # (AUTO) 0.1 X10'3 (0-0.9); EOSINOPHILS % (AUTO) 0.4 % (0-6); HEMATOCRIT 36.1 % (42.0-52.0); HEMOGLOBIN 12.1 g/dl (14.0-17.9); LYMPHOCYTES # (AUTO) 0.4 X10'3 (1.1-4.8); LYMPHOCYTES % (AUTO) 2.7 % (21-51); MEAN CORPUSCULAR HEMOGLOBIN 31.2 PG (27.0-31.0); MEAN CORPUSCULAR HGB CONC 33.6 g/dL (33.0-36.5); MEAN CORPUSCULAR VOLUME 92.8 FL (78-98); MEAN PLATELET VOLUME 7.7 FL (7.4-10.4); MONOCYTES # (AUTO) 1.5 X10'3 (0-0.9); MONOCYTES % (AUTO) 10.1 % (2-12); NEUTROPHILS # (AUTO) 12.7 X10'3 (1.8-7.7); NEUTROPHILS % (AUTO) 86.1 % (42-75); PLATELET COUNT 259 X10'3 (140-440); RED BLOOD COUNT 3.89 X10'6 (4.70-6.10); RED CELL DISTRIBUTION WIDTH 13.7 % (11.5-14.5); WHITE BLOOD COUNT 14.8 X10'3 (4.5-11.0)
[2018-12-11 10:18] LABS: ALANINE AMINOTRANSFERASE 42 U/L (12-78); ALBUMIN 2.6 G/DL (3.4-5.0); ALBUMIN/GLOBULIN RATIO 0.5 (1.1-1.5); ALKALINE PHOSPHATASE 77 IU/L (46-116); ANION GAP 7 (8-16); ASPARTATE AMINO TRANSFERASE 83 U/L (10-37); BILIRUBIN,TOTAL 0.5 MG/DL (0.1-1.0); BLOOD UREA NITROGEN 32 MG/DL (7-18); BUN/CREATININE RATIO 25.2 (5.4-32.0); CALCIUM 8.8 MG/DL (8.5-10.1); CHLORIDE 96 MMOL/L (99-107); CREATININE 1.27 MG/DL (0.60-1.10); GLUCOSE 107 MG/DL (70-104); POTASSIUM 4.5 MMOL/L (3.5-5.1); SODIUM 132 MMOL/L (135-145); TOTAL CARBON DIOXIDE 28.6 MMOL/L (24-32); eGFR 57 ML/MIN
[2018-12-11] MEDS ORDERED: ciprofloxacin 250mg tablet PO ONE (11:45)
--- NOTE | 2018-12-11 13:15 | NUR ---
assumed care of pt from Natalya HAM
--- NOTE | 2018-12-11 13:30 | NUR ---
first contact with pt, pt is restless, standing up by bed, pt is oriented to person only, GCS 14, hard to follow simple commands, Rogerio ARNOLD at bedside to reeval pt, Dr Wells at bedside as well, is at bedside, said pt took oxycodone 20 mg PO 4 tabs at approx 0800 "he just took them from the bottle", suppose to take 1tab q 8hrs, +cmst to rt hand
[2018-12-11 13:40] LABS: CLARITY,URINE CLEAR (Clear); COLOR,URINE STRAW (Yellow); GLUCOSE, URINE NEGATIVE (Neg); KETONES,URINE NEGATIVE (Neg); LEUKOCYTE ESTERASE ,URINE NEGATIVE (Neg); NITRITES, URINE NEGATIVE (Neg); OCCULT BLOOD,URINE SMALL (Neg); PROTEIN,URINE NEGATIVE (Neg); UROBILINOGEN,URINE 0.2 E.U/dL (0.2-1.0)
[2018-12-11] MEDS ORDERED: morphine 2 MG/ML inj. syringe IV ONE (13:40)
--- NOTE | 2018-12-11 13:41 | NUR ---
Dr Wells gave verbal order for morphine 2mg IV x1 now
[2018-12-11] MEDS ORDERED: morphine 2 MG/ML inj. syringe IV PRN (13:50)
[2018-12-11] MEDS ORDERED: acetaminophen 325mg tablet PO PRN (13:50)
[2018-12-11] MEDS ORDERED: ondansetron/PF 4mg/2ml inj IV PRN (13:50)
[2018-12-11] MEDS ORDERED: mag hydrox/Alum hydrox/simeth 30ml oral suspension PO PRN (13:50)
[2018-12-11] MEDS ORDERED: magnesium hydroxide 30ml (MOM) UD suspension PO PRN (13:50)
--- NOTE | 2018-12-11 13:53 | NUR ---
pt moved to nurses station as he keeps getting out of bed and is confused, sitter at bedside
[2018-12-11 13:55] LABS: URINE AMPHETAMINE SCREEN NEGATIVE (Neg); URINE BARBITUATE SCREEN NEGATIVE (Neg); URINE BENZODIAZEPINES SCREEN NEGATIVE (Neg); URINE CANNABINOID SCREEN POSITIVE (Neg); URINE COCAINE SCREEN NEGATIVE (Neg); URINE METHADONE SCREEN NEGATIVE (Neg); URINE OPIATE SCREEN POSITIVE (Neg); URINE PHENCYCLIDINE SCREEN NEGATIVE (Neg)
[2018-12-11 13:58] LABS: UA COLLECTION TYPE URINAL
[2018-12-11 13:59] LABS: BACTERIA,URINE 1+ /HPF (Neg); RBC,URINE 0-2 /HPF (0-2); SQUAMOUS EPITHELIAL CELL,UR FEW /LPF (FEW); WBC,URINE 0-4 /HPF (0-4)
--- NOTE | 2018-12-11 15:14 | NUR ---
pt is quietly sleeping, resp even and unlabored
[2018-12-11] MEDS: ceFAZolin 1GM/D5W- ADD-VANTAGE 50 ML IV SCH ×2 (15:16→16:00)
[2018-12-11] MEDS ORDERED: ASPI-611 PO (15:24)
--- NOTE | 2018-12-11 16:53 | NUR ---
report to Angelika HAM
[2018-12-11 17:00] VITALS: BP 107/54
--- NOTE | 2018-12-11 17:00 | NUR ---
Patient in room ORTHO 4012. I have received report from ANT HAM and had the opportunity to ask questions and assume patient care.
--- NOTE | 2018-12-11 17:41 | NUR ---
PAGER ID: [phone] MESSAGE: MEET [id number] RE: RACHEL [id number] MED REC NEEDS ADDRESSED WHEN YOU HAVE TIME AND MAY NEED A SITTER.
[2018-12-11 18:00] VITALS: BP 107/54
[2018-12-11] MEDS ORDERED: CIPR750T4 PO (18:24)
[2018-12-11] MEDS ORDERED: LISI-604 PO (18:29)
[2018-12-11] MEDS ORDERED: FURO-150 PO (18:29)
[2018-12-11] MEDS ORDERED: BUDE10.2 INH (18:29)
--- NOTE | 2018-12-11 18:50 | NUR ---
Problems reprioritized. Patient report given, questions answered & plan of care reviewed with CHERRIE HAM.
[2018-12-11] MEDS ORDERED: cyclobenzaprine 10mg tablet PO PRN (19:15)
[2018-12-11] MEDS ORDERED: oxyCODONE IR 5mg (immed. release) tablet PO PRN (19:15)
[2018-12-11] MEDS: budesonide 0.5mg/2ml UD nebule IH SCH (20:28)
[2018-12-11] MEDS: albuterol 2.5 MG/3 ML nebule NEB SCH (20:28)
[2018-12-11] MEDS: oxyCODONE SR 10mg (sust. release) tab PO SCH (20:29)
[2018-12-11] MEDS ORDERED: OLANZapine 2.5MG tablet PO SCH (21:00)
[2018-12-11 22:00] VITALS: BP 127/54
[2018-12-11] MEDS: morphine 2 MG/ML inj. syringe IV PRN (22:13)
[2018-12-11] MEDS: ciprofloxacin 250mg tablet PO SCH (22:13)
[2018-12-12] VITALS (7 sets, daily range): BP systolic 97–133; BP diastolic 61–76
[2018-12-12] MEDS: ceFAZolin 1GM/D5W- ADD-VANTAGE 50 ML IV SCH ×2 (00:04→08:31)
--- NOTE | 2018-12-12 01:20 | NUR ---
Patient screaming out that " my device is shocking my heart and it is going up to my head " He has what looks like a pacemaker/ possible defibrillator implanted under the the left chest. He is talking to me, his pulse feels regular when palpated; I am having his aide take his vitals and do a ekg at this time.
--- NOTE | 2018-12-12 01:30 | NUR ---
I notified pt's nurse of the event that happened when nurse was at lunch and waiting on ekg to be read.
[2018-12-12] MEDS: albuterol 2.5 MG/3 ML nebule NEB SCH ×4 (02:53→20:01)
--- NOTE | 2018-12-12 06:48 | NUR ---
Patient in room ORTHO 4012. I have received report from Megan HAM and had the opportunity to ask questions and assume patient care.
[2018-12-12 07:17] LABS: BASOPHILS % (AUTO) 0.3 % (0-1); EOSINOPHILS % (AUTO) 0.2 % (0-6); HEMATOCRIT 36.3 % (42.0-52.0); LYMPHOCYTES # (AUTO) 0.3 X10'3 (1.1-4.8); LYMPHOCYTES % (AUTO) 2.3 % (21-51); MEAN CORPUSCULAR HEMOGLOBIN 31.1 PG (27.0-31.0); MEAN CORPUSCULAR HGB CONC 33.1 g/dL (33.0-36.5); MEAN CORPUSCULAR VOLUME 93.9 FL (78-98); MEAN PLATELET VOLUME 8.4 FL (7.4-10.4); MONOCYTES # (AUTO) 1.2 X10'3 (0-0.9); MONOCYTES % (AUTO) 8.9 % (2-12); NEUTROPHILS # (AUTO) 12.2 X10'3 (1.8-7.7); NEUTROPHILS % (AUTO) 88.3 % (42-75); PLATELET COUNT 255 X10'3 (140-440); RED BLOOD COUNT 3.86 X10'6 (4.70-6.10); RED CELL DISTRIBUTION WIDTH 14.1 % (11.5-14.5); WHITE BLOOD COUNT 13.8 X10'3 (4.5-11.0)
[2018-12-12] MEDS: budesonide 0.5mg/2ml UD nebule IH SCH ×2 (07:20→20:01)
[2018-12-12 07:38] LABS: ALBUMIN 2.1 G/DL (3.4-5.0); ANION GAP 9 (8-16); BLOOD UREA NITROGEN 16 MG/DL (7-18); CHLORIDE 99 MMOL/L (99-107); CREATININE 0.94 MG/DL (0.60-1.10); GLUCOSE 71 MG/DL (70-104); POTASSIUM 3.8 MMOL/L (3.5-5.1); SODIUM 136 MMOL/L (135-145); TOTAL CARBON DIOXIDE 28.1 MMOL/L (24-32); eGFR 81 ML/MIN
[2018-12-12] MEDS ORDERED: rivaroxaban 10mg tablet PO SCH (08:00)
[2018-12-12] MEDS ORDERED: lisinopril 5mg tablet PO SCH (08:00)
[2018-12-12] MEDS ORDERED: loratadine 10mg tablet PO SCH (08:00)
[2018-12-12] MEDS ORDERED: venlafaxine XR 37.5mg cap (Q24H) PO SCH (08:00)
[2018-12-12] MEDS ORDERED: digoxin 125mcg (0.125mg) tablet PO SCH (08:00)
[2018-12-12] MEDS ORDERED: cyanocobalamin 500mcg tablet PO SCH (08:00)
[2018-12-12] MEDS ORDERED: vitamin D (cholecalciferol) 1,000 unit tablet PO SCH (08:00)
[2018-12-12] MEDS: tamsulosin 0.4mg capsule PO SCH (08:32)
[2018-12-12] MEDS: metoprolol succinate 25mg (24-HOUR) SR. Tablet PO SCH (08:32)
[2018-12-12] MEDS: atorvastatin 20mg tablet PO SCH (08:33)
[2018-12-12] MEDS: furosemide 20MG tablet PO SCH (08:33)
[2018-12-12] MEDS: pantoprazole 40mg Tablet.DR PO SCH (08:33)
[2018-12-12] MEDS: aspirin 81mg tablet.DR PO SCH (08:34)
[2018-12-12] MEDS: oxyCODONE SR 10mg (sust. release) tab PO SCH ×4 (08:35→20:25)
[2018-12-12] MEDS: spironolactone 25 MG tablet PO SCH (08:35)
[2018-12-12] MEDS: venlafaxine XR 75mg capsule (Q24H) PO SCH (08:55)
--- NOTE | 2018-12-12 09:53 | NUR ---
2312b: Marko Ferrell .Has defibulator and sustaining HR in the 140s, per apparatus engineering technologist multiple shocks and visual by sitter. promotional marketing analyst Dr. Seay. [place] [phone]
[2018-12-12] MEDS ORDERED: potassium CL 10mEq/100ml bag 100 ML IV PRN (10:10)
[2018-12-12] MEDS ORDERED: potassium Cl 20 mEq SR tablet PO PRN ×2 (10:10)
[2018-12-12] MEDS ORDERED: amiodarone 150mg/dext, iso-os 100 ML IV ONE (10:10)
[2018-12-12] MEDS: rivaroxaban 20mg tablet PO SCH (10:21)
--- NOTE | 2018-12-12 10:37 | NUR ---
Cardiac diet education consult: Pt with hx COPD, CHF, A.fib, CAD, and HTN. Toxicology positive for amphetamines last visit 11/30/18 and positive for opiates and cannabinoids this visit. Per RN notes patient's SO reports pt taking a higher dose of Oxycodone than rx LABOR RELATIONS CONSULTANT. Last lipid panel WNL except for TG elevated at 185 however was in 2015, no new lipid panel at this time. Pt currently documented as A/O x2 with a sitter at bedside, education not appropriate at this time. Will continue to follow and provide cardiac education prior to discharge once pt more alert and oriented. Addendum: 12/12/18 at [address] Amended: Links added.
--- NOTE | 2018-12-12 11:00 | NUR ---
Problems reprioritized. Patient report given, questions answered & plan of care reviewed with Eagle HAM.
--- NOTE | 2018-12-12 11:09 | NUR ---
transfer to [facility]
--- NOTE | 2018-12-12 11:30 | NUR ---
PAGER ID: [phone] MESSAGE: [id number] See Molina just . FATOUMATA Guillermo Ext [phone] Addendum: 12/12/18 at 1241 by Eagle Velazquez RN wrong patient
[2018-12-12 11:32] LABS: MAGNESIUM 1.4 MG/DL (1.5-2.4); PHOSPHORUS 1.9 MG/DL (2.3-4.5); POTASSIUM 3.7 MMOL/L (3.5-5.1)
[2018-12-12] MEDS: amiodarone/D5 360MG/200ML BAG 200 ML IV SCH ×3 (11:56→22:22)
[2018-12-12] MEDS: ciprofloxacin 250mg tablet PO SCH (12:03)
[2018-12-12] MEDS ORDERED: cyanocobalamin 500mcg tablet CORPAK SCH (12:05)
[2018-12-12] MEDS ORDERED: cyclobenzaprine 10mg tablet CORPAK PRN (12:06)
[2018-12-12] MEDS ORDERED: ciprofloxacin 250mg tablet CORPAK SCH (12:06)
[2018-12-12] MEDS ORDERED: digoxin 125mcg (0.125mg) tablet CORPAK SCH (12:06)
[2018-12-12] MEDS ORDERED: lisinopril 5mg tablet CORPAK SCH (12:07)
[2018-12-12] MEDS ORDERED: loratadine 10mg tablet CORPAK SCH (12:07)
[2018-12-12] MEDS ORDERED: magnesium hydroxide 30ml (MOM) UD suspension CORPAK PRN (12:08)
[2018-12-12] MEDS ORDERED: mag hydrox/Alum hydrox/simeth 30ml oral suspension CORPAK PRN (12:08)
[2018-12-12] MEDS ORDERED: vitamin D (cholecalciferol) 1,000 unit tablet CORPAK SCH (12:08)
[2018-12-12] MEDS ORDERED: oxyCODONE IR 5mg (immed. release) tablet CORPAK PRN (12:09)
[2018-12-12] MEDS ORDERED: OLANZapine 2.5MG tablet CORPAK SCH (12:09)
--- NOTE | 2018-12-12 12:40 | NUR ---
PAGER ID: [phone] MESSAGE: [id number] Heart rate 150's and substained (sinus tach). FATOUMATA Guillermo Ext [phone]
--- NOTE | 2018-12-12 13:01 | NUR ---
PAGER ID: [phone] MESSAGE: [id number] Marko Ferrell is now in sinus rhythm. Patient is also one of Dr Seay's cardio patients. Do you want amio gtt continued still or DC'd? FATOUMATA Guillermo Ext [phone]
[2018-12-12] MEDS: cefepime 2g/NS 100ml ADVANTAGE 100 ML IV SCH (17:14)
[2018-12-12] MEDS: HYDROcodone/acetaminophen 5mg/325mg tablet PO PRN (17:53)
[2018-12-12] MEDS: lactose-reduced food (Ensure High Protein) 237ml bottle PO SCH (18:01)
--- NOTE | 2018-12-12 18:19 | NUR ---
Problems reprioritized. Patient report given, questions answered & plan of care reviewed with FATOUMATA Gilliland.
[2018-12-12] MEDS: lactobacillus rhamnosus 10,000 MMU CELLS/CAPSULE PO SCH (20:23)
[2018-12-12] MEDS ORDERED: magnesium 4gm in 100ml NS 100 ML IV PRN (22:15)
[2018-12-12] MEDS ORDERED: magnesium 2GM in 50ml NS 50 ML IV PRN (22:15)
[2018-12-13] VITALS: BP 131/78
[2018-12-13] MEDS: cefepime 2g/NS 100ml ADVANTAGE 100 ML IV SCH ×3 (00:55→15:54)
[2018-12-13 02:00] VITALS: BP 129/69
[2018-12-13] MEDS: albuterol 2.5 MG/3 ML nebule NEB SCH ×4 (03:00→20:27)
[2018-12-13 04:00] VITALS: BP 131/82
[2018-12-13] MEDS: amiodarone/D5 360MG/200ML BAG 200 ML IV SCH ×3 (04:26→16:34)
[2018-12-13 05:31] LABS: BASOPHILS % (AUTO) 0.4 % (0-1); EOSINOPHILS # (AUTO) 0.1 X10'3 (0-0.9); EOSINOPHILS % (AUTO) 1.3 % (0-6); HEMATOCRIT 36.8 % (42.0-52.0); HEMOGLOBIN 12.4 g/dl (14.0-17.9); LYMPHOCYTES # (AUTO) 0.4 X10'3 (1.1-4.8); LYMPHOCYTES % (AUTO) 4.1 % (21-51); MEAN CORPUSCULAR HEMOGLOBIN 31.4 PG (27.0-31.0); MEAN CORPUSCULAR HGB CONC 33.6 g/dL (33.0-36.5); MEAN CORPUSCULAR VOLUME 93.5 FL (78-98); MEAN PLATELET VOLUME 8.3 FL (7.4-10.4); MONOCYTES # (AUTO) 1.2 X10'3 (0-0.9); MONOCYTES % (AUTO) 11.2 % (2-12); NEUTROPHILS # (AUTO) 8.9 X10'3 (1.8-7.7); PLATELET COUNT 307 X10'3 (140-440); RED BLOOD COUNT 3.94 X10'6 (4.70-6.10); RED CELL DISTRIBUTION WIDTH 14.3 % (11.5-14.5); WHITE BLOOD COUNT 10.7 X10'3 (4.5-11.0)
[2018-12-13 05:50] LABS: ALBUMIN 2.1 G/DL (3.4-5.0); ANION GAP 4 (8-16); BLOOD UREA NITROGEN 15 MG/DL (7-18); BUN/CREATININE RATIO 16.1 (5.4-32.0); CALCIUM 8.9 MG/DL (8.5-10.1); CHLORIDE 99 MMOL/L (99-107); CREATININE 0.93 MG/DL (0.60-1.10); GLUCOSE 110 MG/DL (70-104); MAGNESIUM 1.9 MG/DL (1.5-2.4); SODIUM 136 MMOL/L (135-145); TOTAL CARBON DIOXIDE 32.7 MMOL/L (24-32); eGFR 82 ML/MIN
[2018-12-13 06:00] VITALS: BP 121/75
--- NOTE | 2018-12-13 06:00 | NUR ---
Patient in room PCU 3028. I have received report from Marija HAM and had the opportunity to ask questions and assume patient care.
--- NOTE | 2018-12-13 06:10 | NUR ---
Problems reprioritized. Patient report given, questions answered & plan of care reviewed with Rosy HAM .
--- NOTE | 2018-12-13 06:20 | NUR ---
Student Medication Administration: For this medication-pass time frame, all medication were reviewed, dispensed, administered and documented per hospital policy by Olesya YAN. Student documentation: I have reviewed and agree with all interventions, assessments performed and documented by Olesya YAN.
[2018-12-13] MEDS: lactose-reduced food (Ensure High Protein) 237ml bottle PO SCH ×3 (08:00→18:00)
[2018-12-13] MEDS: budesonide 0.5mg/2ml UD nebule IH SCH ×2 (08:00→20:00)
[2018-12-13] MEDS ORDERED: mag hydrox/Alum hydrox/simeth 30ml oral suspension PO PRN (08:45)
[2018-12-13] MEDS ORDERED: magnesium hydroxide 30ml (MOM) UD suspension PO PRN (08:45)
[2018-12-13] MEDS: pantoprazole 40mg Tablet.DR PO SCH (08:56)
[2018-12-13] MEDS: tamsulosin 0.4mg capsule PO SCH (08:56)
[2018-12-13] MEDS: atorvastatin 20mg tablet PO SCH (08:56)
[2018-12-13] MEDS: aspirin 81mg tablet.DR PO SCH (08:56)
[2018-12-13] MEDS: furosemide 20MG tablet PO SCH (08:56)
[2018-12-13] MEDS: venlafaxine XR 75mg capsule (Q24H) PO SCH (08:56)
[2018-12-13] MEDS: lactobacillus rhamnosus 10,000 MMU CELLS/CAPSULE PO SCH ×2 (08:56→19:39)
[2018-12-13] MEDS: spironolactone 25 MG tablet PO SCH (08:57)
[2018-12-13] MEDS: metoprolol succinate 25mg (24-HOUR) SR. Tablet PO SCH (08:57)
[2018-12-13] MEDS: oxyCODONE SR 10mg (sust. release) tab PO SCH ×4 (08:58→20:58)
[2018-12-13] MEDS: rivaroxaban 20mg tablet PO SCH (09:02)
[2018-12-13] MEDS: oxyCODONE IR 5mg (immed. release) tablet PO PRN ×2 (09:46→22:20)
--- NOTE | 2018-12-13 10:59 | NUR ---
Nutrition consult re: "not able to get enough calories". Pt documented with 50% PO intake of dinner 12/11 and breakfast 12/12, 0% at lunch 12/12, and 75% at dinner 12/12; pending documentation of PO intake for today. Noted that Ensure High Protein has been ordered TID and pt documented with 100% of ONS so far. Pt will consume ~5521-0756 kcal and ~55-82 g protein with PO intake range of 50-75% at meals with an additional 480 kcal and 48 g protein with 100% PO intake of ONS TID resulting in a daily total of ~7305-0398 kcal and ~103-130 g protein meeting 100% of estimated nutrient needs. No further nutrition intervention warranted at this time. Will continue to follow. Addendum: 12/13/18 at [address] Amended: Links added.
[2018-12-13 11:39] LABS: ALANINE AMINOTRANSFERASE 31 U/L (12-78); ALBUMIN/GLOBULIN RATIO 0.4 (1.1-1.5); ALKALINE PHOSPHATASE 75 IU/L (46-116); ASPARTATE AMINO TRANSFERASE 51 U/L (10-37); BILIRUBIN,DIRECT 0.1 MG/DL (0-0.3); BILIRUBIN,TOTAL 0.3 MG/DL (0.1-1.0); TOTAL PROTEIN 7.4 G/DL (6.4-8.2)
[2018-12-13] MEDS: morphine 2 MG/ML inj. syringe IV PRN ×2 (15:37→19:38)
[2018-12-13] MEDS ORDERED: amiodarone 200mg tablet PO STA (15:57)
[2018-12-13] MEDS: amiodarone 200mg tablet PO SCH (16:01)
[2018-12-13 17:12] LABS: ALANINE AMINOTRANSFERASE 29 U/L (12-78); ALBUMIN/GLOBULIN RATIO 0.4 (1.1-1.5); ALKALINE PHOSPHATASE 72 IU/L (46-116); ASPARTATE AMINO TRANSFERASE 47 U/L (10-37); BILIRUBIN,DIRECT 0.1 MG/DL (0-0.3); BILIRUBIN,TOTAL 0.3 MG/DL (0.1-1.0); TOTAL PROTEIN 7.4 G/DL (6.4-8.2)
[2018-12-13 18:00] VITALS: BP 118/56
--- NOTE | 2018-12-13 18:23 | NUR ---
Patient in room PCU 3028. I have received report from Megan HAM and had the opportunity to ask questions and assume patient care.
--- NOTE | 2018-12-13 19:23 | NUR ---
Problems reprioritized. Patient report given, questions answered & plan of care reviewed with FATOUMATA Nogueira.
[2018-12-13] MEDS: OLANZapine 2.5MG tablet PO SCH (20:57)
--- NOTE | 2018-12-13 22:07 | NUR ---
PAGER ID: [phone] MESSAGE: pt Ghassan Rodrigues [id number], dx with right hand osteomyelitis and pseudomonas is having pain 11/27, he received morphine and oxycodone. He request a different pain medication. Thanks, Jessy [phone]
[2018-12-13] MEDS ORDERED: HYDROmorphone inj. 0.5 MG/0.5 ML DISP.SYRIN IM ONE (22:45)
[2018-12-13 23:00] VITALS: BP 123/80
[2018-12-13] MEDS ORDERED: HYDROmorphone inj. 0.5 MG/0.5 ML DISP.SYRIN IV ONE (23:00)
[2018-12-14] MEDS: cefepime 2g/NS 100ml ADVANTAGE 100 ML IV SCH ×3 (00:28→19:17)
[2018-12-14] MEDS: morphine 2 MG/ML inj. syringe IV PRN ×3 (01:20→19:17)
[2018-12-14 02:00] VITALS: BP 113/78
[2018-12-14] MEDS: albuterol 2.5 MG/3 ML nebule NEB SCH ×4 (03:00→21:00)
[2018-12-14 05:28] LABS: BASOPHILS % (AUTO) 0.2 % (0-1); EOSINOPHILS # (AUTO) 0.3 X10'3 (0-0.9); EOSINOPHILS % (AUTO) 2.2 % (0-6); HEMATOCRIT 36.7 % (42.0-52.0); HEMOGLOBIN 12.5 g/dl (14.0-17.9); LYMPHOCYTES # (AUTO) 0.6 X10'3 (1.1-4.8); LYMPHOCYTES % (AUTO) 5.5 % (21-51); MEAN CORPUSCULAR HEMOGLOBIN 31.9 PG (27.0-31.0); MEAN CORPUSCULAR HGB CONC 34.1 g/dL (33.0-36.5); MEAN CORPUSCULAR VOLUME 93.7 FL (78-98); MONOCYTES # (AUTO) 1.2 X10'3 (0-0.9); MONOCYTES % (AUTO) 10.7 % (2-12); NEUTROPHILS # (AUTO) 9.4 X10'3 (1.8-7.7); NEUTROPHILS % (AUTO) 81.4 % (42-75); PLATELET COUNT 354 X10'3 (140-440); RED BLOOD COUNT 3.92 X10'6 (4.70-6.10); RED CELL DISTRIBUTION WIDTH 14.3 % (11.5-14.5); WHITE BLOOD COUNT 11.5 X10'3 (4.5-11.0)
[2018-12-14 05:31] LABS: ANION GAP 2 (8-16); BLOOD UREA NITROGEN 20 MG/DL (7-18); BUN/CREATININE RATIO 23.8 (5.4-32.0); CALCIUM 9.7 MG/DL (8.5-10.1); CHLORIDE 97 MMOL/L (99-107); CREATININE 0.84 MG/DL (0.60-1.10); GLUCOSE 98 MG/DL (70-104); MAGNESIUM 1.5 MG/DL (1.5-2.4); POTASSIUM 3.8 MMOL/L (3.5-5.1); SODIUM 133 MMOL/L (135-145); TOTAL CARBON DIOXIDE 33.7 MMOL/L (24-32); eGFR > 90 ML/MIN
--- NOTE | 2018-12-14 06:15 | NUR ---
Problems reprioritized. Patient report given, questions answered & plan of care reviewed with amaury HAM.
--- NOTE | 2018-12-14 06:24 | NUR ---
Patient in room U 3023a. I have received report from FATOUMATA Jiménez and had the opportunity to ask questions and assume patient care. Patient sleeping in bed, no distress noted. Will continue to monitor.
[2018-12-14 07:00] VITALS: BP 122/82
[2018-12-14] MEDS: pantoprazole 40mg Tablet.DR PO SCH (08:05)
[2018-12-14] MEDS: rivaroxaban 20mg tablet PO SCH (08:05)
[2018-12-14] MEDS: furosemide 20MG tablet PO SCH (08:06)
[2018-12-14] MEDS: lactobacillus rhamnosus 10,000 MMU CELLS/CAPSULE PO SCH ×2 (08:06→19:17)
[2018-12-14] MEDS: metoprolol succinate 25mg (24-HOUR) SR. Tablet PO SCH (08:06)
[2018-12-14] MEDS: digoxin 125mcg (0.125mg) tablet PO SCH (08:06)
[2018-12-14] MEDS: cyanocobalamin 500mcg tablet PO SCH (08:06)
[2018-12-14] MEDS: atorvastatin 20mg tablet PO SCH (08:06)
[2018-12-14] MEDS: venlafaxine XR 75mg capsule (Q24H) PO SCH (08:07)
[2018-12-14] MEDS: oxyCODONE SR 10mg (sust. release) tab PO SCH ×4 (08:07→20:43)
[2018-12-14] MEDS: loratadine 10mg tablet PO SCH (08:07)
[2018-12-14] MEDS: aspirin 81mg tablet.DR PO SCH (08:07)
[2018-12-14] MEDS: lisinopril 5mg tablet PO SCH (08:07)
[2018-12-14] MEDS: amiodarone 200mg tablet PO SCH ×2 (08:07→19:17)
[2018-12-14] MEDS: tamsulosin 0.4mg capsule PO SCH (08:07)
[2018-12-14] MEDS: spironolactone 25 MG tablet PO SCH (08:08)
[2018-12-14] MEDS: vitamin D (cholecalciferol) 1,000 unit tablet PO SCH (08:08)
[2018-12-14] MEDS: lactose-reduced food (Ensure High Protein) 237ml bottle PO SCH ×3 (08:11→18:00)
[2018-12-14] MEDS: budesonide 0.5mg/2ml UD nebule IH SCH ×2 (09:16→20:00)
[2018-12-14 11:00] VITALS: BP 106/62
--- NOTE | 2018-12-14 11:27 | NUR ---
Pt c/o pain in R hand not eased with oral pain medication. PRN medication administered per MD order.
[2018-12-14 15:00] VITALS: BP 139/79
[2018-12-14 18:00] VITALS: BP 102/65
--- NOTE | 2018-12-14 18:50 | NUR ---
Patient in room PCU 3028. I have received report from Heather HAM and had the opportunity to ask questions and assume patient care.
[2018-12-14] MEDS: OLANZapine 2.5MG tablet PO SCH (20:42)
[2018-12-14 22:00] VITALS: BP 108/64
[2018-12-15 02:00] VITALS: BP 122/71
[2018-12-15] MEDS: albuterol 2.5 MG/3 ML nebule NEB SCH ×4 (02:55→21:00)
[2018-12-15 05:34] LABS: BASOPHILS # (AUTO) 0.1 X10'3 (0-0.2); BASOPHILS % (AUTO) 0.5 % (0-1); EOSINOPHILS # (AUTO) 0.3 X10'3 (0-0.9); EOSINOPHILS % (AUTO) 2.7 % (0-6); HEMATOCRIT 38.1 % (42.0-52.0); HEMOGLOBIN 12.9 g/dl (14.0-17.9); LYMPHOCYTES # (AUTO) 0.7 X10'3 (1.1-4.8); LYMPHOCYTES % (AUTO) 6.2 % (21-51); MEAN CORPUSCULAR HEMOGLOBIN 31.3 PG (27.0-31.0); MEAN CORPUSCULAR HGB CONC 33.9 g/dL (33.0-36.5); MEAN CORPUSCULAR VOLUME 92.5 FL (78-98); MEAN PLATELET VOLUME 7.8 FL (7.4-10.4); MONOCYTES # (AUTO) 1.3 X10'3 (0-0.9); MONOCYTES % (AUTO) 11.2 % (2-12); NEUTROPHILS # (AUTO) 9.4 X10'3 (1.8-7.7); NEUTROPHILS % (AUTO) 79.4 % (42-75); PLATELET COUNT 396 X10'3 (140-440); RED BLOOD COUNT 4.12 X10'6 (4.70-6.10); RED CELL DISTRIBUTION WIDTH 14.1 % (11.5-14.5); WHITE BLOOD COUNT 11.8 X10'3 (4.5-11.0)
[2018-12-15 05:37] LABS: ALBUMIN 2.1 G/DL (3.4-5.0); ANION GAP 5 (8-16); BLOOD UREA NITROGEN 27 MG/DL (7-18); BUN/CREATININE RATIO 29.7 (5.4-32.0); CALCIUM 9.2 MG/DL (8.5-10.1); CHLORIDE 100 MMOL/L (99-107); CREATININE 0.91 MG/DL (0.60-1.10); GLUCOSE 102 MG/DL (70-104); MAGNESIUM 1.4 MG/DL (1.5-2.4); SODIUM 136 MMOL/L (135-145); TOTAL CARBON DIOXIDE 31.3 MMOL/L (24-32); eGFR 84 ML/MIN
--- NOTE | 2018-12-15 05:57 | NUR ---
[place] documentation: I have reviewed and agree with all interventions, assessments performed and documented by Bonita HAM. [place] Medication Administration: For this medication-pass time frame, all medication were reviewed, dispensed, administered and documented per hospital policy by Bonita HAM.
--- NOTE | 2018-12-15 06:21 | NUR ---
Problems reprioritized. Patient report given, questions answered & plan of care reviewed with Martha HAM.
[2018-12-15 06:30] VITALS: BP 117/72
--- NOTE | 2018-12-15 06:46 | NUR ---
Patient in room PCU 3028A. I have received report from Farheen HAM and had the opportunity to ask questions and assume patient care.
[2018-12-15] MEDS: cefepime 2g/NS 100ml ADVANTAGE 100 ML IV SCH ×3 (07:49→16:09)
[2018-12-15] MEDS: spironolactone 25 MG tablet PO SCH (07:49)
[2018-12-15] MEDS: rivaroxaban 20mg tablet PO SCH (07:49)
[2018-12-15] MEDS: aspirin 81mg tablet.DR PO SCH (07:50)
[2018-12-15] MEDS: amiodarone 200mg tablet PO SCH ×2 (07:50→21:05)
[2018-12-15] MEDS: loratadine 10mg tablet PO SCH (07:50)
[2018-12-15] MEDS: lactobacillus rhamnosus 10,000 MMU CELLS/CAPSULE PO SCH ×2 (07:50→19:14)
[2018-12-15] MEDS: venlafaxine XR 75mg capsule (Q24H) PO SCH (07:51)
[2018-12-15] MEDS: tamsulosin 0.4mg capsule PO SCH (07:51)
[2018-12-15] MEDS: lactose-reduced food (Ensure High Protein) 237ml bottle PO SCH ×3 (07:51→18:00)
[2018-12-15] MEDS: atorvastatin 20mg tablet PO SCH (07:52)
[2018-12-15] MEDS: digoxin 125mcg (0.125mg) tablet PO SCH (07:52)
[2018-12-15] MEDS: furosemide 20MG tablet PO SCH (07:52)
[2018-12-15] MEDS: pantoprazole 40mg Tablet.DR PO SCH (07:53)
[2018-12-15] MEDS: cyanocobalamin 500mcg tablet PO SCH (07:53)
[2018-12-15] MEDS: metoprolol succinate 25mg (24-HOUR) SR. Tablet PO SCH (07:53)
[2018-12-15] MEDS: oxyCODONE SR 10mg (sust. release) tab PO SCH ×4 (07:53→21:05)
[2018-12-15] MEDS: magnesium Cl slow-release 64mg tablet PO PRN ×2 (07:54→19:14)
[2018-12-15] MEDS: lisinopril 5mg tablet PO SCH (07:54)
[2018-12-15] MEDS: vitamin D (cholecalciferol) 1,000 unit tablet PO SCH (07:54)
[2018-12-15] MEDS: budesonide 0.5mg/2ml UD nebule IH SCH ×2 (08:48→20:00)
[2018-12-15] MEDS: morphine 2 MG/ML inj. syringe IV PRN ×3 (10:58→23:21)
[2018-12-15 11:00] VITALS: BP 112/80
--- NOTE | 2018-12-15 11:50 | NUR ---
Per , gatito Thomas to remove suture in right hand. Removed running suture over right thumb without complications. Patient premedicated and tolerated well.
[2018-12-15] MEDS: HYDROcodone/acetaminophen 5mg/325mg tablet PO PRN (14:00)
[2018-12-15 15:00] VITALS: BP 103/74
--- NOTE | 2018-12-15 16:28 | NUR ---
Initial: Pt admit w/ R hand cellulitis/osteomyelitis hx meth abuse. PO 100% heart healthy meals and ensure high protein TID meeting healing needs. LBM 12/13. Given no lipid panel this admit in addition to Na WNL and hx meth abuse pt is not appropriate for cardiac diet ed at this time. LBM 12/13. No nutrition concerns at this time. Will continue to monitor.' Rec: 1. continue heart healthy diet per MD 2. ensure high protein TIDWM 3. wt per rx Addendum: 12/15/18 at [address] Amended: Links added.
--- NOTE | 2018-12-15 17:19 | NUR ---
Paged hospitalist, Dr. Brown, RE patient increased pain and medications. PAGER ID: [phone] MESSAGE: Betzaida cross [phone]. RE Lizett Ayala [id number]. Pt c/o 11/27 constant pain in R hand, increased from yesterday. Receiving scheduled OxyIR, morphine IV, Jefferson 10mg without relief of pain. Please advise. Thank you!
[2018-12-15 18:00] VITALS: BP 134/81
--- NOTE | 2018-12-15 18:27 | NUR ---
Problems reprioritized. Patient report given, questions answered & plan of care reviewed with Yao HAM.
--- NOTE | 2018-12-15 18:30 | NUR ---
Shift change, one tab Slo-Mag was found in patient bed. Was given 2 tabs this AM, and one tab was not administered.
--- NOTE | 2018-12-15 18:35 | NUR ---
Patient in room PCU 3028A. I have received report from Betzaida RN and Martha RN and had the opportunity to ask questions and assume patient care. Patient sitting in bed for bedside report. Saline locked, on room air, and stable at this time. 1/2 dose of slow mag tablet found during 1800 vitals. Will continue mag replacement protocol and monitor closely.
[2018-12-15] MEDS: OLANZAPINE 5 MG TABLET PO SCH (21:05)
[2018-12-15 22:00] VITALS: BP 99/74
[2018-12-16] MEDS: cefepime 2g/NS 100ml ADVANTAGE 100 ML IV SCH ×3 (00:15→16:15)
[2018-12-16 03:00] VITALS: BP 120/70
[2018-12-16] MEDS: albuterol 2.5 MG/3 ML nebule NEB SCH ×4 (03:00→20:30)
[2018-12-16] MEDS: morphine 2 MG/ML inj. syringe IV PRN (03:29)
[2018-12-16] MEDS: morphine 4 MG/ML inj SYRINge IV PRN ×3 (05:36→22:45)
[2018-12-16 06:00] VITALS: BP 105/71
[2018-12-16 06:06] LABS: BASOPHILS # (AUTO) 0.1 X10'3 (0-0.2); BASOPHILS % (AUTO) 0.6 % (0-1); EOSINOPHILS # (AUTO) 0.4 X10'3 (0-0.9); EOSINOPHILS % (AUTO) 3.2 % (0-6); HEMATOCRIT 37.4 % (42.0-52.0); HEMOGLOBIN 12.8 g/dl (14.0-17.9); LYMPHOCYTES # (AUTO) 0.7 X10'3 (1.1-4.8); LYMPHOCYTES % (AUTO) 5.7 % (21-51); MEAN CORPUSCULAR HEMOGLOBIN 31.6 PG (27.0-31.0); MEAN CORPUSCULAR HGB CONC 34.1 g/dL (33.0-36.5); MEAN CORPUSCULAR VOLUME 92.6 FL (78-98); MEAN PLATELET VOLUME 7.8 FL (7.4-10.4); MONOCYTES # (AUTO) 1.2 X10'3 (0-0.9); MONOCYTES % (AUTO) 10.1 % (2-12); NEUTROPHILS # (AUTO) 9.8 X10'3 (1.8-7.7); NEUTROPHILS % (AUTO) 80.4 % (42-75); PLATELET COUNT 402 X10'3 (140-440); RED BLOOD COUNT 4.04 X10'6 (4.70-6.10); RED CELL DISTRIBUTION WIDTH 14.1 % (11.5-14.5); WHITE BLOOD COUNT 12.2 X10'3 (4.5-11.0)
--- NOTE | 2018-12-16 06:07 | NUR ---
Problems reprioritized. Patient report given, questions answered & plan of care reviewed with Martha RN and FATOUMATA Huston.
[2018-12-16 06:10] LABS: ALBUMIN 2.1 G/DL (3.4-5.0); ANION GAP 4 (8-16); BLOOD UREA NITROGEN 32 MG/DL (7-18); CALCIUM 9.2 MG/DL (8.5-10.1); CHLORIDE 99 MMOL/L (99-107); GLUCOSE 107 MG/DL (70-104); MAGNESIUM 1.4 MG/DL (1.5-2.4); POTASSIUM 4.6 MMOL/L (3.5-5.1); SODIUM 135 MMOL/L (135-145); TOTAL CARBON DIOXIDE 32.3 MMOL/L (24-32); eGFR 75 ML/MIN
--- NOTE | 2018-12-16 06:27 | NUR ---
Patient in room PCU 3014B. I have received report from Yao HAM and had the opportunity to ask questions and assume patient care.
[2018-12-16] MEDS: budesonide 0.5mg/2ml UD nebule IH SCH ×2 (07:03→20:00)
[2018-12-16] MEDS: rivaroxaban 20mg tablet PO SCH (07:51)
[2018-12-16] MEDS: amiodarone 200mg tablet PO SCH (07:52)
[2018-12-16] MEDS: spironolactone 25 MG tablet PO SCH (07:52)
[2018-12-16] MEDS: aspirin 81mg tablet.DR PO SCH (07:52)
[2018-12-16] MEDS: lactobacillus rhamnosus 10,000 MMU CELLS/CAPSULE PO SCH ×2 (07:52→20:30)
[2018-12-16] MEDS: loratadine 10mg tablet PO SCH (07:52)
[2018-12-16] MEDS: venlafaxine XR 75mg capsule (Q24H) PO SCH (07:53)
[2018-12-16] MEDS: tamsulosin 0.4mg capsule PO SCH (07:53)
[2018-12-16] MEDS: digoxin 125mcg (0.125mg) tablet PO SCH (07:53)
[2018-12-16] MEDS: atorvastatin 20mg tablet PO SCH (07:54)
[2018-12-16] MEDS: pantoprazole 40mg Tablet.DR PO SCH (07:54)
[2018-12-16] MEDS: metoprolol succinate 25mg (24-HOUR) SR. Tablet PO SCH (07:54)
[2018-12-16] MEDS: oxyCODONE SR 10mg (sust. release) tab PO SCH ×4 (07:54→20:30)
[2018-12-16] MEDS: furosemide 20MG tablet PO SCH (07:54)
[2018-12-16] MEDS: vitamin D (cholecalciferol) 1,000 unit tablet PO SCH (07:55)
[2018-12-16] MEDS: lisinopril 5mg tablet PO SCH (07:55)
[2018-12-16] MEDS: cyanocobalamin 500mcg tablet PO SCH (07:55)
[2018-12-16] MEDS: lactose-reduced food (Ensure High Protein) 237ml bottle PO SCH ×3 (08:04→18:00)
[2018-12-16 11:00] VITALS: BP 104/56
[2018-12-16] MEDS ORDERED: potassium CL 10mEq/100ml bag 100 ML IV PRN (11:00)
[2018-12-16] MEDS ORDERED: magnesium 4gm in 100ml NS 100 ML IV PRN (11:00)
[2018-12-16] MEDS ORDERED: potassium Cl 20 mEq SR tablet PO PRN ×2 (11:00)
[2018-12-16] MEDS: magnesium Cl slow-release 64mg tablet PO PRN (12:14)
[2018-12-16 15:00] VITALS: BP 116/74
--- NOTE | 2018-12-16 16:15 | NUR ---
Pt IV site red/puffy around area, IV removed with cannula intact.
--- NOTE | 2018-12-16 17:13 | NUR ---
Problems reprioritized. Patient report given, questions answered & plan of care reviewed with Yao HAM.
--- NOTE | 2018-12-16 17:28 | NUR ---
Patient in room U 3014b. I have received report from FATOUMATA Thomas and had the opportunity to ask questions and assume patient care.
--- NOTE | 2018-12-16 17:56 | NUR ---
Problems reprioritized. Patient report given, questions answered & plan of care reviewed with Yao HAM.
[2018-12-16] MEDS: OLANZAPINE 5 MG TABLET PO SCH (20:30)
[2018-12-16 22:00] VITALS: BP 108/68
[2018-12-16 23:00] VITALS: BP 126/70
[2018-12-17] MEDS: cefepime 2g/NS 100ml ADVANTAGE 100 ML IV SCH ×3 (01:05→16:04)
[2018-12-17] MEDS: magnesium Cl slow-release 64mg tablet PO PRN (01:06)
[2018-12-17 01:41] LABS: BASOPHILS # (AUTO) 0.1 X10'3 (0-0.2); BASOPHILS % (AUTO) 0.7 % (0-1); EOSINOPHILS # (AUTO) 0.5 X10'3 (0-0.9); EOSINOPHILS % (AUTO) 3.5 % (0-6); HEMATOCRIT 38.5 % (42.0-52.0); HEMOGLOBIN 12.9 g/dl (14.0-17.9); LYMPHOCYTES % (AUTO) 7.5 % (21-51); MEAN CORPUSCULAR HGB CONC 33.5 g/dL (33.0-36.5); MEAN CORPUSCULAR VOLUME 92.5 FL (78-98); MEAN PLATELET VOLUME 7.5 FL (7.4-10.4); MONOCYTES # (AUTO) 1.2 X10'3 (0-0.9); MONOCYTES % (AUTO) 8.9 % (2-12); NEUTROPHILS # (AUTO) 10.7 X10'3 (1.8-7.7); NEUTROPHILS % (AUTO) 79.4 % (42-75); PLATELET COUNT 416 X10'3 (140-440); RED BLOOD COUNT 4.16 X10'6 (4.70-6.10); RED CELL DISTRIBUTION WIDTH 14.4 % (11.5-14.5); WHITE BLOOD COUNT 13.5 X10'3 (4.5-11.0)
[2018-12-17 01:46] LABS: ALBUMIN 2.1 G/DL (3.4-5.0); ANION GAP 3 (8-16); BLOOD UREA NITROGEN 36 MG/DL (7-18); BUN/CREATININE RATIO 35.3 (5.4-32.0); CALCIUM 9.6 MG/DL (8.5-10.1); CHLORIDE 98 MMOL/L (99-107); CREATININE 1.02 MG/DL (0.60-1.10); GLUCOSE 98 MG/DL (70-104); MAGNESIUM 1.6 MG/DL (1.5-2.4); POTASSIUM 4.9 MMOL/L (3.5-5.1); SODIUM 133 MMOL/L (135-145); TOTAL CARBON DIOXIDE 31.8 MMOL/L (24-32); eGFR 73 ML/MIN
[2018-12-17] MEDS: albuterol 2.5 MG/3 ML nebule NEB SCH ×3 (02:40→20:34)
[2018-12-17 03:00] VITALS: BP 100/55
[2018-12-17] MEDS: morphine 4 MG/ML inj SYRINge IV PRN ×6 (03:58→23:14)
[2018-12-17 06:00] VITALS: BP 104/72
--- NOTE | 2018-12-17 06:15 | NUR ---
Patient in room PCU 3014. I have received report from FATOUMATA Plasencia and had the opportunity to ask questions and assume patient care.
[2018-12-17] MEDS: oxyCODONE SR 10mg (sust. release) tab PO SCH ×4 (07:56→20:04)
[2018-12-17] MEDS: venlafaxine XR 75mg capsule (Q24H) PO SCH (07:57)
[2018-12-17] MEDS: aspirin 81mg tablet.DR PO SCH (07:57)
[2018-12-17] MEDS: lisinopril 5mg tablet PO SCH (07:57)
[2018-12-17] MEDS: loratadine 10mg tablet PO SCH (07:58)
[2018-12-17] MEDS: vitamin D (cholecalciferol) 1,000 unit tablet PO SCH (07:58)
[2018-12-17] MEDS: lactobacillus rhamnosus 10,000 MMU CELLS/CAPSULE PO SCH ×2 (07:58→20:04)
[2018-12-17] MEDS: amiodarone 200mg tablet PO SCH (07:59)
[2018-12-17] MEDS: rivaroxaban 20mg tablet PO SCH (07:59)
[2018-12-17] MEDS: cyanocobalamin 500mcg tablet PO SCH (07:59)
[2018-12-17] MEDS: pantoprazole 40mg Tablet.DR PO SCH (07:59)
[2018-12-17] MEDS: lactose-reduced food (Ensure High Protein) 237ml bottle PO SCH ×3 (08:00→18:00)
[2018-12-17] MEDS: budesonide 0.5mg/2ml UD nebule IH SCH ×2 (08:00→20:00)
[2018-12-17] MEDS: furosemide 20MG tablet PO SCH (08:01)
[2018-12-17] MEDS: digoxin 125mcg (0.125mg) tablet PO SCH (08:01)
[2018-12-17] MEDS: atorvastatin 20mg tablet PO SCH (08:01)
[2018-12-17] MEDS: tamsulosin 0.4mg capsule PO SCH (08:01)
[2018-12-17] MEDS: metoprolol succinate 25mg (24-HOUR) SR. Tablet PO SCH (08:07)
[2018-12-17] MEDS: spironolactone 25 MG tablet PO SCH (08:07)
[2018-12-17 11:00] VITALS: BP 101/72
[2018-12-17 15:00] VITALS: BP 98/58
[2018-12-17 18:00] VITALS: BP 90/48
--- NOTE | 2018-12-17 18:00 | NUR ---
Problems reprioritized. Patient report given, questions answered & plan of care reviewed with FATOUMATA Enriquez .
--- NOTE | 2018-12-17 18:10 | NUR ---
Patient in room PCU 3014B. I have received report from FATOUMATA Guzman and had the opportunity to ask questions and assume patient care. Patient denies CP, n/v, cough, dizziness, and rated pain on right hand 10.
[2018-12-17] MEDS: OLANZAPINE 5 MG TABLET PO SCH (20:04)
[2018-12-17] MEDS: cyclobenzaprine 10mg tablet PO PRN (21:10)
[2018-12-17 22:00] VITALS: BP 105/62
[2018-12-17] MEDS: HYDROcodone/acetaminophen 5mg/325mg tablet PO PRN (22:54)
[2018-12-18] MEDS: cefepime 2g/NS 100ml ADVANTAGE 100 ML IV SCH ×4 (00:16→23:44)
[2018-12-18 02:00] VITALS: BP 119/70
[2018-12-18] MEDS: albuterol 2.5 MG/3 ML nebule NEB SCH ×4 (03:00→19:49)
[2018-12-18] MEDS: morphine 4 MG/ML inj SYRINge IV PRN (03:48)
--- NOTE | 2018-12-18 03:49 | NUR ---
PT C/O 9/10 RIGHT HAND PAIN ADMINISTERED 4MG MORPHINE IVP - CHRISTOPHER PULLED MEDICATION AND OBSERVED MED ADMINISTRATION.
[2018-12-18 06:00] VITALS: BP 125/66
--- NOTE | 2018-12-18 06:00 | NUR ---
Patient in room PCU 3014. I have received report from Mina HAM and had the opportunity to ask questions and assume patient care.
--- NOTE | 2018-12-18 06:20 | NUR ---
Problems reprioritized. Patient report given, questions answered & plan of care reviewed with Annie RN. Pt stable at shift change
[2018-12-18] MEDS: budesonide 0.5mg/2ml UD nebule IH SCH ×2 (08:03→19:45)
[2018-12-18] MEDS: rivaroxaban 20mg tablet PO SCH (08:33)
[2018-12-18] MEDS: loratadine 10mg tablet PO SCH (08:34)
[2018-12-18] MEDS: spironolactone 25 MG tablet PO SCH (08:34)
[2018-12-18] MEDS: amiodarone 200mg tablet PO SCH (08:34)
[2018-12-18] MEDS: tamsulosin 0.4mg capsule PO SCH (08:35)
[2018-12-18] MEDS: lactobacillus rhamnosus 10,000 MMU CELLS/CAPSULE PO SCH ×2 (08:35→19:38)
[2018-12-18] MEDS: aspirin 81mg tablet.DR PO SCH (08:35)
[2018-12-18] MEDS: venlafaxine XR 75mg capsule (Q24H) PO SCH (08:35)
[2018-12-18] MEDS: digoxin 125mcg (0.125mg) tablet PO SCH (08:36)
[2018-12-18] MEDS: furosemide 20MG tablet PO SCH (08:36)
[2018-12-18] MEDS: lisinopril 5mg tablet PO SCH (08:36)
[2018-12-18] MEDS: pantoprazole 40mg Tablet.DR PO SCH (08:37)
[2018-12-18] MEDS: atorvastatin 20mg tablet PO SCH (08:37)
[2018-12-18] MEDS: vitamin D (cholecalciferol) 1,000 unit tablet PO SCH (08:37)
[2018-12-18] MEDS: oxyCODONE SR 10mg (sust. release) tab PO SCH ×4 (08:37→23:36)
[2018-12-18] MEDS: metoprolol succinate 25mg (24-HOUR) SR. Tablet PO SCH (08:37)
[2018-12-18] MEDS: cyanocobalamin 500mcg tablet PO SCH (08:37)
[2018-12-18] MEDS: lactose-reduced food (Ensure High Protein) 237ml bottle PO SCH ×3 (08:41→18:00)
[2018-12-18 11:00] VITALS: BP 130/75
--- NOTE | 2018-12-18 11:00 | NUR ---
Pt c/o 9/10 pain right hand, requesting pain medication. PRN oxycodone for breakthrough pain administered per MD order.
[2018-12-18] MEDS: oxyCODONE IR 5mg (immed. release) tablet PO PRN (11:02)
[2018-12-18 15:00] VITALS: BP 135/81
--- NOTE | 2018-12-18 15:56 | NUR ---
Patient refused SVN tx @ this time. No Shortness of breath noted. Pt only takes Bid at home and is only willing to do the same here. NAD Addendum: 12/18/18 at 1557 by Andra Mccann RT Amended: Links added.
[2018-12-18 18:00] VITALS: BP 138/79
--- NOTE | 2018-12-18 18:00 | NUR ---
Problems reprioritized. Patient report given, questions answered & plan of care reviewed with Mina HAM.
--- NOTE | 2018-12-18 18:30 | NUR ---
Patient in room PCU 3014.B I have received report from FATOUMATA Gallegos and had the opportunity to ask questions and assume patient care. Patient denies CP, dizziness, n/v, rated pain 4/10. Re-educated patient about morphine and its effects. Pt will try to stick with po pain medicine tonight
[2018-12-18] MEDS: OLANZAPINE 5 MG TABLET PO SCH (19:38)
[2018-12-18] MEDS: cyclobenzaprine 10mg tablet PO PRN (19:38)
[2018-12-18 22:00] VITALS: BP 102/68
[2018-12-19 02:00] VITALS: BP 106/60
[2018-12-19] MEDS: albuterol 2.5 MG/3 ML nebule NEB SCH ×4 (04:36→20:27)
[2018-12-19 06:00] VITALS: BP 120/68
--- NOTE | 2018-12-19 06:00 | NUR ---
Patient in room PCU 3014. I have received report from Mina HAM and had the opportunity to ask questions and assume patient care.
--- NOTE | 2018-12-19 06:31 | NUR ---
Problems reprioritized. Patient report given, questions answered & plan of care reviewed with FATOUMATA Gallegos. Patient in stable condition at shift change.
[2018-12-19] MEDS: budesonide 0.5mg/2ml UD nebule IH SCH ×2 (07:58→20:00)
[2018-12-19] MEDS: lactose-reduced food (Ensure High Protein) 237ml bottle PO SCH ×3 (08:00→18:00)
[2018-12-19] MEDS: cefepime 2g/NS 100ml ADVANTAGE 100 ML IV SCH ×3 (08:13→23:51)
[2018-12-19] MEDS: vitamin D (cholecalciferol) 1,000 unit tablet PO SCH (08:13)
[2018-12-19] MEDS: tamsulosin 0.4mg capsule PO SCH (08:14)
[2018-12-19] MEDS: metoprolol succinate 25mg (24-HOUR) SR. Tablet PO SCH (08:15)
[2018-12-19] MEDS: spironolactone 25 MG tablet PO SCH (08:15)
[2018-12-19] MEDS: lisinopril 5mg tablet PO SCH (08:16)
[2018-12-19] MEDS: oxyCODONE SR 10mg (sust. release) tab PO SCH ×4 (08:16→20:49)
[2018-12-19] MEDS: venlafaxine XR 75mg capsule (Q24H) PO SCH (08:16)
[2018-12-19] MEDS: atorvastatin 20mg tablet PO SCH (08:36)
[2018-12-19] MEDS: lactobacillus rhamnosus 10,000 MMU CELLS/CAPSULE PO SCH ×2 (08:36→20:49)
[2018-12-19] MEDS: pantoprazole 40mg Tablet.DR PO SCH (08:36)
[2018-12-19] MEDS: digoxin 125mcg (0.125mg) tablet PO SCH (08:36)
[2018-12-19] MEDS: rivaroxaban 20mg tablet PO SCH (08:36)
[2018-12-19] MEDS: amiodarone 200mg tablet PO SCH (08:36)
[2018-12-19] MEDS: cyanocobalamin 500mcg tablet PO SCH (08:36)
[2018-12-19] MEDS: furosemide 20MG tablet PO SCH (08:37)
[2018-12-19] MEDS: aspirin 81mg tablet.DR PO SCH (08:37)
[2018-12-19] MEDS: loratadine 10mg tablet PO SCH (08:37)
--- NOTE | 2018-12-19 09:24 | NUR ---
I have reviewed and agree with all medications administered and interventions performed by [facility] Student Quan Walker Addendum: 12/19/18 at 0925 by Andra Mccann RT Amended: Links added.
[2018-12-19] MEDS: oxyCODONE IR 5mg (immed. release) tablet PO PRN ×3 (09:47→18:32)
[2018-12-19 11:00] VITALS: BP 136/81
--- NOTE | 2018-12-19 11:02 | NUR ---
Page to PICC nurse re: Room 3014 B Marko Ferrell needs PICC for long-term antibiotics, consent in chart
[2018-12-19 15:00] VITALS: BP 104/64
--- NOTE | 2018-12-19 15:23 | NUR ---
I have reviewed and agree with all medications administered and interventions performed by [facility] Student kevin bowen Addendum: 12/19/18 at 1524 by Andra Mccann RT Amended: Links added.
--- NOTE | 2018-12-19 15:24 | NUR ---
pt only willing to do 2x bronchodliatorsa day Addendum: 12/19/18 at 1524 by Andra Mccann RT Amended: Links added.
[2018-12-19 18:00] VITALS: BP 136/79
--- NOTE | 2018-12-19 18:00 | NUR ---
Problems reprioritized. Patient report given, questions answered & plan of care reviewed with Mina HAM.
--- NOTE | 2018-12-19 18:30 | NUR ---
Patient in room PCU 3019F. I have received report from FATOUMATA Gallegos and had the opportunity to ask questions and assume patient care. Patient alert and oriented X 4, denies CP, SOB, dizziness, n/v. We went over pain medication schedule medication for tonight
--- NOTE | 2018-12-19 19:06 | NUR ---
PICC line placement by PICC nurse for home antibiotics. Per Chest X-Ray the PICC is noted to be approx. 6-7cm short of distal SVC near cavoatrial junction. Therefore this is not a Central Line this should be considered a MIDLINE catheter. Per [facility] Pharmacist patient's Cefepime ok to infuse into a midline. We will leave the line at the position it is in at this time with the understanding that it is a MIDLINE and NOT a Central Line. This report was given to Annie RN and Mina HAM taking care of this patient.
[2018-12-19] MEDS: OLANZAPINE 5 MG TABLET PO SCH (20:48)
[2018-12-19] MEDS: cyclobenzaprine 10mg tablet PO PRN (20:48)
[2018-12-19 22:00] VITALS: BP 112/69
[2018-12-19] MEDS: HYDROcodone/acetaminophen 5mg/325mg tablet PO PRN (22:37)
[2018-12-20 02:00] VITALS: BP 123/71
[2018-12-20] MEDS: albuterol 2.5 MG/3 ML nebule NEB SCH ×3 (03:00→15:00)
[2018-12-20] MEDS: oxyCODONE IR 5mg (immed. release) tablet PO PRN ×2 (03:07→14:01)
--- NOTE | 2018-12-20 06:00 | NUR ---
Patient in room PCU 3014. I have received report from Mina HAM and had the opportunity to ask questions and assume patient care.
[2018-12-20] MEDS: oxyCODONE SR 10mg (sust. release) tab PO SCH ×2 (07:30→12:37)
[2018-12-20] MEDS: lactose-reduced food (Ensure High Protein) 237ml bottle PO SCH ×2 (08:00→13:00)
[2018-12-20] MEDS: budesonide 0.5mg/2ml UD nebule IH SCH (08:47)
[2018-12-20] MEDS: cefepime 2g/NS 100ml ADVANTAGE 100 ML IV SCH ×2 (10:43→15:58)
[2018-12-20] MEDS: cyclobenzaprine 10mg tablet PO PRN (10:50)
[2018-12-20] MEDS: venlafaxine XR 75mg capsule (Q24H) PO SCH (10:50)
[2018-12-20] MEDS: lactobacillus rhamnosus 10,000 MMU CELLS/CAPSULE PO SCH (10:50)
[2018-12-20] MEDS: rivaroxaban 20mg tablet PO SCH (10:50)
[2018-12-20] MEDS: vitamin D (cholecalciferol) 1,000 unit tablet PO SCH (10:50)
[2018-12-20] MEDS: loratadine 10mg tablet PO SCH (10:52)
[2018-12-20] MEDS: digoxin 125mcg (0.125mg) tablet PO SCH (10:52)
[2018-12-20] MEDS: cyanocobalamin 500mcg tablet PO SCH (10:52)
[2018-12-20] MEDS: atorvastatin 20mg tablet PO SCH (10:52)
[2018-12-20] MEDS: tamsulosin 0.4mg capsule PO SCH (10:52)
[2018-12-20] MEDS: pantoprazole 40mg Tablet.DR PO SCH (10:52)
[2018-12-20] MEDS: furosemide 20MG tablet PO SCH (10:52)
[2018-12-20] MEDS: metoprolol succinate 25mg (24-HOUR) SR. Tablet PO SCH (10:53)
[2018-12-20] MEDS: aspirin 81mg tablet.DR PO SCH (10:53)
[2018-12-20] MEDS: lisinopril 5mg tablet PO SCH (10:53)
[2018-12-20] MEDS: amiodarone 200mg tablet PO SCH (10:56)
[2018-12-20] MEDS: spironolactone 25 MG tablet PO SCH (10:57)
--- NOTE | 2018-12-20 14:03 | NUR ---
PAGER ID: [phone] MESSAGE: [id number] PAREE WILL D/C TODAY AFTER IV INFUSION TEACHING @ 1500. DO YOU WANT ME TO PLACE D/C ORDER? ISABELLA [id number]
[2018-12-20] MEDS ORDERED: AMIO200T61 PO (14:15)
[2018-12-20] MEDS ORDERED: LACT1CAP26 PO (14:15)
[2018-12-20] MEDS: HYDROcodone/acetaminophen 5mg/325mg tablet PO PRN (15:56)
[2018-12-20 16:06] LABS: BASOPHILS # (AUTO) 0.1 X10'3 (0-0.2); BASOPHILS % (AUTO) 0.8 % (0-1); EOSINOPHILS # (AUTO) 0.3 X10'3 (0-0.9); EOSINOPHILS % (AUTO) 2.2 % (0-6); HEMATOCRIT 36.3 % (42.0-52.0); HEMOGLOBIN 12.3 g/dl (14.0-17.9); LYMPHOCYTES # (AUTO) 0.8 X10'3 (1.1-4.8); LYMPHOCYTES % (AUTO) 5.5 % (21-51); MEAN CORPUSCULAR HEMOGLOBIN 31.5 PG (27.0-31.0); MEAN CORPUSCULAR HGB CONC 33.8 g/dL (33.0-36.5); MEAN CORPUSCULAR VOLUME 93.3 FL (78-98); MEAN PLATELET VOLUME 7.6 FL (7.4-10.4); MONOCYTES # (AUTO) 1.1 X10'3 (0-0.9); MONOCYTES % (AUTO) 7.6 % (2-12); NEUTROPHILS # (AUTO) 12.1 X10'3 (1.8-7.7); NEUTROPHILS % (AUTO) 83.9 % (42-75); PLATELET COUNT 320 X10'3 (140-440); RED BLOOD COUNT 3.89 X10'6 (4.70-6.10); RED CELL DISTRIBUTION WIDTH 14.1 % (11.5-14.5); WHITE BLOOD COUNT 14.5 X10'3 (4.5-11.0)
--- NOTE | 2018-12-20 16:45 | NUR ---
Patient discharged stable to home with home health and infusion therapy. Infusion nurse here to teach patient and spouse infusion equipment and medication as well as provide supplies. Patient is leaving with a Left Upper Arm Midline placed by PICC nurse on 12/19/2018. All personal belongings returned to patient. Discharge instructions given to patient and spouse. Both verbalized understanding. Tele box removed and returned to Sa[facility]. One tablet of Amiodorone prescription phoned to [email or web address] on [address] [facility] which will provide 2 doses. Hard [facility] Patient wheeled out via wheelchair by staff to private vehicle accompanied by spouse.
== END 2018-12-20 16:45 | disposition home health service (06) | DRG 872 ==
LOC: ER 09:04 → ED HOLD 14:46 → ORTHO 4S 16:55 → PCU 3S 12-12 11:13
PROVIDERS: ADMIT Internal Medicine; ATTEND Internal Medicine
PROC: 4B02XTZ Measurement of Cardiac Defibrillator, External Approach (ICD-10-PCS; 2018-12-14)
PROC: 02HV33Z Insertion of Infusion Device into Superior Vena Cava, Percutaneous Approach (ICD-10-PCS; principal; 2018-12-19)
PROC: B548ZZA Ultrasonography of Superior Vena Cava, Guidance (ICD-10-PCS; 2018-12-19)
DX: A41.9 Sepsis, unspecified organism (principal); I50.22 Chronic systolic (congestive) heart failure; Z68.1 Body mass index [BMI] 19.9 or less, adult; M48.52XA Collapsed vertebra, not elsewhere classified, cervical region, initial encounter for fracture; M86.8X4 Other osteomyelitis, hand; I47.2 Ventricular tachycardia; I48.92 Unspecified atrial flutter; N17.9 Acute kidney failure, unspecified; E11.69 Type 2 diabetes mellitus with other specified complication; L03.011 Cellulitis of right finger; B19.20 Unspecified viral hepatitis C without hepatic coma; E78.00 Pure hypercholesterolemia, unspecified; E78.5 Hyperlipidemia, unspecified; F32.9 Major depressive disorder, single episode, unspecified; K21.9 Gastro-esophageal reflux disease without esophagitis; N40.0 Benign prostatic hyperplasia without lower urinary tract symptoms; M54.9 Dorsalgia, unspecified; F17.210 Nicotine dependence, cigarettes, uncomplicated; M19.011 Primary osteoarthritis, right shoulder; I11.0 Hypertensive heart disease with heart failure; F12.90 Cannabis use, unspecified, uncomplicated; F41.9 Anxiety disorder, unspecified; G89.29 Other chronic pain; I25.10 Atherosclerotic heart disease of native coronary artery without angina pectoris; I48.0 Paroxysmal atrial fibrillation; J44.9 Chronic obstructive pulmonary disease, unspecified; I25.2 Old myocardial infarction; Z79.899 Other long term (current) drug therapy; Z87.01 Personal history of pneumonia (recurrent); Z87.440 Personal history of urinary (tract) infections; Z91.010 Allergy to peanuts; Z82.49 Family history of ischemic heart disease and other diseases of the circulatory system; Z83.3 Family history of diabetes mellitus
CPT/HCPCS: 36415; 36569; 70450; 71045; 72125; 73130; 76937; 80048; 80053; 80076; 80305; 81001; 83036; 83605; 83735; 84100; 84132; 84439; 84443; 85025; 85610; 85651; 86140; 87040; 87081; 93005; 93306; 94640; 94760; 96374; 96375; 96376; 99285; G0378; J0282; J0690; J0692; J1170; J2060; J2270; J2405; J3475; J7626